=== PATIENT | male | born 1960 | race Caucasian/White ===

== ENCOUNTER 2023-05-22 06:42 | Outpatient (OUT) | payer OTHER, SELFPAY ==
[2023-05-22 07:01] LABS: Basophils Absolute Auto 0.1 10^3/uL (0.0-0.1); Basophils Percent Auto 1.5 % (0.2-2.0); Eosinophils Absolute Auto 0.4 10^3/uL (0.0-0.7); Hematocrit 44.5 % (42.0-54.0); Hemoglobin 14.8 g/dL (14.0-18.0); Immature Granulocytes Abs Auto 0.02 10^3/uL (0.00-0.03); Immature Granulocytes Pct Auto 0.3 % (0.0-0.5); Lymphocytes Absolute Auto 1.7 10^3/uL (1.2-3.8); Lymphocytes Percent Auto 28.6 % (20.5-60.0); Mean Corpuscular HGB Conc 33.3 g/dL (29.9-35.2); Mean Corpuscular Hemoglobin 29.6 pg (25.9-34.0); Mean Platelet Volume 11.3 fL (9.5-13.5); Monocytes Absolute Auto 0.8 10^3/uL (0.3-0.8); Monocytes Percent Auto 14.4 % (1.7-12.0); Neutrophils Absolute Auto 2.8 10^3/uL (1.4-6.5); Neutrophils Percent Auto 48.2 % (43.0-75.0); Platelet Count 291 10^3/uL (150-450); Red Cell Distribution Width 12.4 % (11.0-15.0); White Blood Count 5.8 10^3/uL (4.0-11.0)
[2023-05-22 07:21] LABS: Alanine Aminotransferase 30 U/L (16-63); Albumin Globulin Ratio 1.1; Albumin Level 3.6 g/dL (3.4-5.0); Alkaline Phosphatase 38 U/L (46-116); Anion Gap 12.2; Aspartate Amino Transferase 18 U/L (15-37); BUN Creatinine Ratio 14.9; Bilirubin Total 0.5 mg/dL (0.2-1.0); Calcium 8.5 mg/dL (8.5-10.1); Chloride 106 mmol/L (98-107); Chol HDL Ratio 4.9; Cholesterol 166 mg/dL (<=200); Estimated GFR (African America >60 (>=60); Estimated GFR (Non-African Ame >60 (>=60); Globulin 3.2 g/dL; Glucose 95 mg/dL (74-106); HDL Cholesterol 34 mg/dL (40-60); Potassium 4.2 mmol/L (3.5-5.1); Sodium 142 mmol/L (136-145); Total Protein 6.8 g/dL (6.4-8.2); Triglycerides 55 mg/dL (<=150)
[2023-05-22 08:34] LABS: Prostate Specific Antigen Scrn 2.28 ng/mL (<=4.00)
== END 2023-05-22 06:43 | disposition home or self-care (01) ==
PROVIDERS: PCP Internal Medicine; Visit Provider Internal Medicine
DX: Z00.00 Encounter for general adult medical examination without abnormal findings (principal)
CPT/HCPCS: 36415; 80053; 80061; 85025; G0103

== ENCOUNTER 2023-10-19 20:29 | Outpatient (OUT) | payer OTHER, SELFPAY ==
--- OUTSIDE RECORDS SUMMARY | 2023-10-19 20:31 | XMS_ITS | CCD ---
Author Organization [facility] Care Team Providers Care Slitter Service And Setter Name Role Phone DR KENTON MONTEIRO Admitting Unavailable ISH, DR KATZ Attending Unavailable ISH, DR KATZ Primary Care Unavailable ISH, DR KATZ Consulting Unavailable Kenton Monteiro Unavailable Destinee Rich Unavailable Medications Current Medications Medication Drug Class(es) Dates Sig (Normalized) Sig (Original) amLODIPine 10 mg oral tablet (8 sources) Dihydropyridine Calcium Channel Cecy Start: 07-19-2023 take 10 mg by mouth once daily Amlodipine Active 10 MG PO Daily 90 July 19, 2023 5:59pm Start: 06-25-2023 End: 07-19-2023 take 10 mg by mouth once daily Amlodipine Discontinued 10 MG PO Daily 180 90 June 25, 2023 4:07pm July 19, 2023 5:59pm Start: 05-14-2023 End: 06-25-2023 take 5 mg by mouth once daily Amlodipine Discontinued 5 MG PO Daily 90 May 18, 2023 4:34pm June 25, 2023 4:08pm Start: 05-08-2022 take 1 tablet by karina th every twenty-four hours amLODIPine Besylate 5 MG 1 tablet Orally Once a day for 90 days Apr, Active Aspir-81 81 MG (4 sources) take 1 tablet by mouth once daily Aspir-81 81 MG 1 tablet Orally Once a day Active aspirin 81 mg delayed release oral tablet (1 source) Platelet Aggregation Inhibitor, Nonsteroidal Anti-inflammatory Drug Start: 05-14-19 take 81 mg by mouth once daily Aspirin Active 81 MG PO Daily May 14, 2023 1:00am azithromycin 250 mg oral tablet (2 sources) Macrolide Antimicrobial Start: 12-01-19 Azithromycin 250 MG as directed Orally daily for 5 days Nov, Active meloxicam 15 mg oral tablet (6 sources) Nonsteroidal Anti-inflammatory Drug Start: 05-14-19 End: 05-18-19 take 15 mg by mouth once daily Meloxicam Active 15 MG PO Daily 90 90 May 18, 2023 4:34pm Meloxicam 15 mg TAKE 1 TABLET DAILY Active methylPREDNISolone 4 mg oral tablet (3 sources) Corticosteroid Start: 11-24-2022 methylPREDNISolone 4 MG as directed Orally daily for 6 days Nov, Active sildenafil 100 mg oral tablet (5 sources) Phosphodiesterase 5 Inhibitor Start: 05-14-2023 Sildenafil Active 100 MG PO May 14, 2023 1:00am Sildenafil Citra te 100 mg TAKE 1 TABLET NEEDED FOR ERECTILE DYSFUNCTION Active Completed/Discontinued Medications Medication Drug Class(es) Dates Sig (Normalized) Sig (Original) doxycycline hyclate 100 mg oral capsule (1 source) Tetracycline-clas s Drug Start: 04-15-2016 take 1 capsule by mouth every twelve hours Doxycycline Hyclate 100 mg 1 capsule Orally twice a day for 10 day(s) Apr, Not-Taking Problems Active Problems Problem Classification Problem Date Documented Date Episodic/Chronic Acute bronchitis (1 source) Acute bronchitis due to other specified organisms Episodic Esophageal disorders (2 sources) Gastro-esophageal reflux disease with esophagitis; Translations: [Gastroesophageal reflux disease with esophagitis without hemorrhage] 05-14-2023 Chronic Essential hypertension (10 sources) Essential hypertension; Translations: [Essential (primary) hypertension] Chronic Hyperplasia of prostate (5 sources) Benign prostatic hypertrophy without outflow obstruction; Translations: [Benign prostatic hyperplasia without lower urinary tract symptoms] 05-14-2023 Chronic Other connective tissue disease (1 source) Other symptoms and signs involving the nervous system; Translations: [Other symptoms involving nervous and musculoskeletal systems] 09-03-2023 Episodic Other male genital disorders (4 sources) Impotence of organic origin; Translations: [Erectile dysfunction due to arterial insufficiency] Chronic Other male genital disorders (1 source) Erectile dysfunction co-occurrent and due to arterial insufficiency; Translations: [Erectile dysfunction due to arterial insufficiency] 05-14-2023 Chronic Other nutritional; endocrine; and metabolic disorders (4 sources) Body mass index 25-29 - overweight; Translations: [Overweight] Episodic Other nutritional; endocrine; and metabolic disorders (1 source) Overweight Episodic Other screening for suspected conditions (not mental disorders or infectious disease) (6 sources) Encounter for screening for malignant neoplasm of prostate; Translations: [Patient encounter status] Onset: 05-18-2022 Episodic Other upper respiratory infections (5 sources) Acute pharyngitis; Translations: [Acute pharyngitis due to other specified organisms] Episodic Skin and subcutaneous tissue infections (4 sources) Cellulitis of toe of right foot; Translations: [Cellulitis of right toe] Episodic Spondylosis; intervertebral disc disorders; other back problems (10 sources) Lumbar spondylosis; Translations: [Spondylosis without myelopathy or radiculopathy, lumbar region] Chronic Past or Other Problems Problem Classification Problem Date Documented Da te Episodic/Chronic Esophageal disorders (3 sources) Esophageal disorders; Translations: [Gastroesophageal reflux disease with esophagitis without hemorrhage] Unclassified (4 sources) Acute bilateral low back pain, unspecified whether sciatica present; Translations: [Acute bilateral low back pain, unspecified whether sciatica present] Results Test Name Value Interpretation Reference Range Facility CBC AUTO DIFFon 05-16-2022 BASO # 0.1 103/ul Normal 0.0-0.[address] [facility] Comment on above: Performed By: #### C BC #### [facility] [address] [place] [address] Dr. Kelly Matta Basophils/100 WBC (Bld) 1.4 % Normal 0.2-2.[address] [facility] Comment on above: Performed By: #### C BC #### [facility] [address] [place] [address] Dr. Kelly Matta EO # 0.3 103/ul Normal 0.0-0.[address] [facility] Comment on above: Performed By: #### C BC #### [facility] [address] [address] [address] Kelly Matta Eosinophils/100 WBC (Bld) 6.0 % Normal 0.9-7.[address] [facility] Comment on above: Performed By: #### C BC #### [facility] [address] [place] [address] Dr. Kelly Matta Erythrocyte distribution width (RBC) [Ratio] 12.5 % Normal 11.0-15.[address] [facility] Comment on above: Performed By: #### C BC #### [facility] [address] [place] [address] Dr. Kelly Matta Hematocrit (Bld) [Volume fraction] 43.0 % Normal 42.0-54.[address] [facility] Comment on above: Performed By: #### C BC #### [facility] [address] [place] [address] Dr. Kelly Matta Hemoglobin (Bld) [Mass/Vol] 14.9 g/dL Normal 14.0-18.[address] [facility] Comment on above: Performed By: #### C BC #### [facility] [address] [place] [address] Dr. Kelly Matta IG # 0.03 10e3/ul Normal 0.00-0.[address] [facility] Comment on above: Performed By: #### C BC #### [facility] [address] [place] [address] Dr. Kelly Matta IG % 0.5 % Normal 0.0-0.[address] [facility] Comment on above: Performed By: #### C BC #### [facility] [address] [place] [address] Dr. Kelly Matta LYMPH # 1.6 103/ul Normal 1.2-3.[address] [facility] Comment on above: Performed By: #### C BC #### [facility] [address] [place] [address] Dr. Kelly Matta Lymphocytes/100 WBC (Bld) 29.0 % Normal 20.5-60.[address] [facility] Comment on above: Performed By: #### C BC #### [facility] [address] [place] [address] Dr. Kelly Matta MANUAL DIFF REQ NO Normal [facility] Comment on above: Performed By: #### C BC #### [facility] [address] [place] [address] Dr. Kelly Matta MCH (RBC) [Entitic mass] 30.3 pg Normal 25.9-34.[address] [facility] Comment on above: Performed By: #### C BC #### [facility] [address] [place] [address] Dr. Kelly Matta MCHC (RBC) [Mass/Vol] 34.7 g/dL Normal 29.9-35.[address] [facility] Comment on above: Performed By: #### C BC #### [facility] [address] [place] [address] Dr. Kelly Matta MCV (RBC) [Entitic vol] 87.4 fL Normal 80.0-94.[address] [facility] Comment on above: Performed By: #### C BC #### [facility] [address] [place] [address] Dr. Kelly Matta MONO # 0.7 103/ul Normal 0.3-0.[address] [facility] Comment on above: Performed By: #### C BC #### [facility] [address] [place] [address] Dr. Kelly Matta Monocytes/100 WBC (Bld) 11.9 % Normal 1.7-12.[address] [facility] Comment on above: Performed By: #### C BC #### [facility] [address] [place] [address] Dr. Kelly Matta NEUT # 2.9 103/ul Normal 1.4-6.[address] [facility] Comment on above: Performed By: #### C BC #### [facility] [address] [place] [address] Dr. Kelly Matta Neutrophils/100 WBC (Bld) 51.2 % Normal 43.0-75.[address] [facility] Comment on above: Performed By: #### C BC #### [facility] [address] [place] [address] Dr. Kelly Matta Platelet mean volume (Bld) [Entitic vol] 11.2 fL Normal 9.5-13.[address] [facility] Comment on above: Performed By: #### C BC #### [facility] [address] [place] [address] Dr. Kelly Matta PLT 264 103/ul Normal 150-[address] [facility] Comment on above: Performed By: #### C BC #### [facility] [address] [place] [address] Dr. Kelly Matta RBC 4.92 106/ul Normal 4.70-6.10 [facility] Comment on above: Performed By: #### C BC #### [facility] [address] [address] [address] Kelly Matta WBC 5.7 103/ul Normal 4.0-11.[address] [facility] Comment on above: Performed By: #### C BC #### [facility] [address] [address] [address] Kelly Matta Complete Blood Count and Dif lauren 05-16-2022 Anisocytosis Ql (d) [facility] Other Basophilic stippling LM Ql (d) [facility] Other RBC morphology finding Nom (d) [facility] Other Comprehensive Metabolic Pane nicolas 05-16-2022 Comprehensive Metabolic Panel [facility] Other LIPID PROFILEon 05-16-2022 CHOL-HDL RATIO NORM SEE BELOW Normal [facility] Comment on above: Result Comment: 3.3 - 4.4 LOW RISK 4.4 - 7.1 AVERAGE RISK 7.1 - 11.0 MODERATE RISK >11.0 HIGH RISK Performed By: #### L IPID, CMP #### [facility] [address] [place] [address] Dr. Kelly Matta Cholesterol [Mass/Vol] 183 mg/dL Normal <=[address] [facility] Comment on above: Performed By: #### L IPID, CMP #### [facility] [address] [address] [address] Kelly Matta Cholesterol in HDL [Mass/Vol] 32 mg/dL Critically low 40-[address] [facility] Comment on above: Performed By: #### L IPID, CMP #### [facility] [address] [address] [address] Kelly Matta Cholesterol in LDL [Mass/Vol] 129.6 mg/dL Normal [facility] Comment on above: Performed By: #### L IPID, CMP #### [facility] [address] [address] [address] Kelly Matta Cholesterol.total/C holesterol in HDL [Mass ratio] 5.7 {ratio} Normal [facility] Comment on above: Performed By: #### L IPID, CMP #### [facility] [address] [address] [address] Kelly Matta HDL NORMAL > or = 60 mg/dl - LOW CARDIOVASCULAR RISK <40 mg/dl - HIGH CARDIOVASCULAR RISK Normal [facility] Comment on above: Performed By: #### L IPID, CMP #### [facility] [address] [address] [address] Kelly Matta LDL CALC NORMAL SEE BELOW Normal [facility] Comment on above: Result Comment: <100 mg/dl OPTIMAL 100 - 129 mg/dl NEAR OR ABOVE OPTIMAL 130 - 159 mg/dl BORDERLINE HIGH 160 - 189 mg/dl HIGH >190 mg/dl VERY HIGH Performed By: #### L IPID, CMP #### [facility] [address] [address] [address] Kelly Matta Triglyceride [Mass/Vol] 107 mg/dL Normal <=[address] [facility] Comment on above: Performed By: #### L IPID, CMP #### [facility] [address] [address] [address] Kelly Matta VLDL CALC 21.4 mg/dL Normal [facility] Comment on above: Performed By: #### L IPID, CMP #### [facility] [address] [address] [address] Kelly Matta PROF 14(COMP METB)on 023 Albumin [Mass/Vol] 4.0 g/dL Normal 3.4-5.0 [facility] Comment on above: Performed By: #### L IPID, CMP #### [facility] [address] [address] [address] Kelly Matta Albumin/Globulin [Mass ratio] 1.3 {ratio} Normal [facility] Comment on above: Performed By: #### L IPID, CMP #### [facility] [address] [address] [address] Kelly Matta ALP [Catalytic activity/Vol] 34 U/L Critically low 46-[address] [facility] Comment on above: Performed By: #### L IPID, CMP #### [facility] [address] [address] [address] Kelly Matta ALT [Catalytic activity/Vol] 38 U/L Normal 16-[address] [facility] Comment on above: Performed By: #### L IPID, CMP #### [facility] [address] [address] [address] Kelly Matta Anion gap [Moles/Vol] 12.7 mmol/L Normal [facility] Comment on above: Performed By: #### L IPID, CMP #### [facility] [address] [address] [address] Kelly Matta AST [Catalytic activity/Vol] 23 U/L Normal 15-[address] [facility] Comment on above: Performed By: #### L IPID, CMP #### [facility] [address] [address] [address] Kelly Matta Bilirubin [Mass/Vol] 0.4 mg/dL Normal 0.2-1.[address] [facility] Comment on above: Performed By: #### L IPID, CMP #### [facility] [address] [address] [address] Kelly Matta Calcium [Mass/Vol] 8.9 mg/dL Normal 8.5-10.1 [facility] Comment on above: Performed By: #### L IPID, CMP #### [facility] [address] [address] [address] Kelly Matta Chloride [Moles/Vol] 108 mmol/L Critically high 98-[address] [facility] Comment on above: Performed By: #### L IPID, CMP #### [facility] [address] [address] [address] Kelly Matta CO2 [Moles/Vol] 28.6 mmol/L Normal 21.0-32.0 [facility] Comment on above: Performed By: #### L IPID, CMP #### [facility] [address] [address] [address] Kelly Matta Creatinine [Mass/Vol] 0.99 mg/dL Normal 0.70-1.[address] [facility] Comment on above: Performed By: #### L IPID, CMP #### [facility] [address] [address] [address] Kelly Matta EGFR-AF GEORGIAN >60 Normal >=60 [facility] Comment on above: Performed By: #### L IPID, CMP #### [facility] [address] [address] [address] Kelly Matta EGFR-NON AF GEORGIAN >60 Normal >=[address] [facility] Comment on above: Performed By: #### L IPID, CMP #### [facility] [address] [address] [address] Kelly Matta Globulin (S) [Mass/Vol] 3.1 g/dL Normal [facility] Comment on above: Performed By: #### L IPID, CMP #### [facility] [address] [address] [address] Kelly Matta Glucose [Mass/Vol] 100 mg/dL Normal 74-106 [facility] Comment on above: Performed By: #### L IPID, CMP #### [facility] [address] [address] [address] Kelly Matta Potassium [Moles/Vol] 4.3 mmol/L Normal 3.5-5.[address] [facility] Comment on above: Performed By: #### L IPID, CMP #### [facility] [address] [address] [address] Kelly Matta Protein [Mass/Vol] 7.1 g/dL Normal 6.4-8.2 [facility] Comment on above: Performed By: #### L IPID, CMP #### [facility] [address] [address] [address] Kelly Matta Sodium [Moles/Vol] 145 mmol/L Normal 136-145 [facility] Comment on above: Performed By: #### L IPID, CMP #### [facility] [address] [address] [address] Kelly Matta Urea nitrogen [Mass/Vol] 24.0 mg/dL Critically high 7.0-18.[address] [facility] Comment on above: Performed By: #### L IPID, CMP #### [facility] [address] [address] [address] Kelly Matta Urea nitrogen/Creatinine [Mass ratio] 24.2 mg/mg Normal [facility] Comment on above: Performed By: #### L IPID, CMP #### [facility] [address] [address] [address] Kelly Matta Coding Summary.on 07-26-2018 Coding Summary. CODING DATE: 07/26/2018 FINAL [facility] DSC STATUS: Home (Routine DC) PAYOR: [facility] [place] [facility] DESCRIPTION [address] [facility] Procedures ADMIT DX: REASON FOR VISIT DX: H33.001 Unspecified retinal detachment with retinal break, right eye FINAL DX: PRINCIPAL: H33.001 Unspecified retinal detachment with retinal break, right eye SECONDARY: PYMT PROC APC STAT DESCRIPTION DOCTOR NAME DATE 25382 5481 T Prophylaxis of retinal Sylvia Ely MD 07/20/2018 detachment (eg, retinal break, lattice degeneration) without drainage, 1 or more sessions; photocoagulation (laser or xenon arc) RT Right side (used to identify procedures performed on the right side of the body) NOTE: The code number assigned matches the documented diagnosis and / or procedure in the patient's chart. However, the narrative phrase printed from the coding software may appear abbreviated, or result in slightly different terminology. Coded By: Evelin Hidalgo Date Saved: 07/26/2018 03:18 pm Normal [facility] Vital Signs Date Time Vital Sign Value Performing Clinician Facility 09-03-2023 08:51-0400 Body height 182.88 cm [facility] 09-03-2023 08:51-0400 Body mass index (BMI) [Ratio] 27.8 kg/m2 [facility] 09-03-2023 08:51-0400 Body weight 93.04 kg [facility] 09-03-2023 08:51-0400 Diastolic blood pressure 89 mm[Hg] [facility] 09-03-2023 08:51-0400 Respiratory rate 12 /min [facility] 06-21-2024 08:51-0400 Systolic blood pressure 139 mm[Hg] [facility] 11-24-2022 10:45-0400 Body height 182.88 cm Destinee Layla Other [email or web address] Other 11-24-2022 10:45-0400 Body mass index (BMI) [Ratio] 27.72 kg/m2 Destinee Layla Other [email or web address] Other 11-24-2022 10:45-0400 Body weight 92.72 kg Destinee Layla Other [email or web address] Other 11-24-2022 10:45-0400 Diastolic blood pressure 80 mm[Hg] Destinee Layla Other [email or web address] Other 11-24-2022 10:45-0400 SaO2% (BldA) [Mass fraction] 97 % Destinee Layla Other [email or web address] Other 11-24-2022 10:45-0400 Systolic blood pressure 128 mm[Hg] Destinee Layla Other [email or web address] Other 05-08-2022 14:30-0500 Body height 182.88 cm Kenton Ball Other [email or web address] Other 05-08-2022 14:30-0500 Body mass index (BMI) [Ratio] 28.69 kg/m2 Kenton Ball Other [email or web address] Other 05-08-2022 14:30-0500 Body weight 95.98 kg Kenton Ball Other [email or web address] Other 05-08-2022 14:30-0500 Diastolic blood pressure 80 mm[Hg] Kenton Ball Other [email or web address] Other 05-08-2022 14:30-0500 Respiratory rate 12 /min Kenton Ish Other [email or web address] Other 05-08-2022 14:30-0500 Systolic blood pressure 122 mm[Hg] Kenton Monteiro Other [email or web address] Other Encounters Encounter Date Encounter Type Care Provider Facility Start: 09-03-2023 End: 09-03-2023 ambulatory [facility] Work Phone: Start: 09-03-2023 End: 09-03-2023 Patient encounter procedure [facility] Work Phone: Start: 03-24-2023 End: 03-24-2023 ambulatory Kenton Monteiro Other [email or web address] Other Start: 03-24-2023 Telephone encounter Kenton ALVAREZ [facility] Start: 11-30-2022 End: 11-30-2022 ambulatory Kenton Monteiro Other [email or web address] Other Start: 11-30-2022 Telephone encounter Kenton ALVAREZ [facility] Start: 11-24-2022 End: 11-24-2022 ambulatory Destinee Rich Other [email or web address] Other Start: 11-24-2022 Office outpatient vi sit 15 minutes Destinee Rich [facility] Start: 05-18-2022 Encounter for genera l adult medical examination without abnormal findings DR KENTON MONTEIRO [facility] Start: 05-16-2022 End: 05-17-[address] KENTON MONTEIRO Facility:[facility] Start: 05-16-2022 End: 05-17-2022 Encounter for general adult medical examination without abnormal findings DR KENTON MONTEIRO Facility:[facility] Start: 05-08-2022 End: 05-08-2022 ambulatory Kenton Monteiro Other [email or web address] Other Start: 05-08-2022 Encounter for genera l adult medical examination without abnormal findings Kenton Monteiro [facility] Start: 05-08-2022 Periodic preventive med est patient 40-64yrs Kenton Ish [facility] Procedures Date Procedure Procedure Detail Performing Clinician Start: 05-16-2022 End: 05-16-[address] KENTON MONTEIRO Comment on above: Performed By: #### P [facility] #### [facility] [address] [place] [address] Dr. Kelly Matta Screening for malign ant neoplasm of colon Kenton Monterio Other Immunizations Immunization Date Immunization Notes Care Provider Jesse tran 01-06-2021 influenza virus vaccine, split virus (incl. purified surface antigen) Destinee Rich Other [email or web address] Other 01-06-2021 influenza virus vaccine, unspecified formulation [facility] 04-09-2017 influenza virus vaccine, split virus (incl. purified surface antigen) Destinee Rich Other [facility] Other 04-09-2017 influenza virus vaccine, unspecified formulation [facility] 01-29-2016 tetanus and diphtheria toxoids, adsorbed, preservative free, for adult use (5 Lf of tetanus toxoid and 2 Lf of diphtheria toxoid) Destinee Rich Other [facility] NEGATED: Highlighted row has not occurred!12-06-2019 influenza virus vaccine, split virus (incl. purified surface antigen) Destinee Rich Other [email or web address] Other Payers Date Payer Category Payer Unknown [id number] 1959 Unknown [id number] Social History Date Type Detail Facility Sex Assigned At [email or web address] Other Start: 05-18-2023 Tobacco smoking stat us INIS Never smoked tobacco (finding) [facility] Start: 1960 Sex Assigned At Male F [facility] Evaluation note 11-30-2022 Note Date & Type Note Facility 11-30-2022 Evaluation note Encounter Date Diagnosis Assessment Notes Nov, Acute bronchitis due to other specified organisms (ICD-10 - J20.8) [email or web address] Other Evaluation note 11-24-2022 Note Date & Type Note Facility 11-24-2022 Evaluation note Encounter Date Diagnosis Assessment Notes Nov, Laryngitis (ICD-10 - J04.0) Symptoms of laryngitis is caused by viruses. We discussed treatmen and will trial a steroid. Take medication as prescribed. Complete all doses of medication, even if sx are no longer present. Pt instructed to take medication with food. Informed pt that medication may make pt feel jittery, hungry and give you extra energy. Medication may also increase blood pressure and increase blood sugar. Pt also advised not to take NSAIDs or Meloxicam while using steroids. Salt water gargles may help with discomfort. Take medications as directed. Cool mist humidifier, steaming up bathroom with shower may help with symptom relief. Follow up with if no improvement of symptoms [email or web address] Other Evaluation note 05-08-2022 Note Date & Type Note Facility 05-08-2022 Evaluation note Encounter Date Diagnosis Assessment Notes Apr, Essential hypertension (ICD-10 - I10) This patient is instructed to consume a healthy, low-fat, low-salt diet. They are also encouraged to continue exercise to achieve/maintai n a normal BMI. Apr, Wellness examination (ICD-10 - Z00.00) Healthy diet and exercise. Reviewed age-appropriate preventive testing recommended. Apr, Overweight (BMI 25.0-29.9) (ICD-10 - E66.3) This patient has been instructed on a low-fat, high-fiber diet. They are instructed to reduce calories, portion sizes and snacks. It is recommended that they exercise for 30 minutes, 3-5 times weekly. Apr, Lumbar spondylosis (ICD-10 - M47.816) The patient is instructed to avoid bending, twisting or lifting. They are to use intermittent heat and ice as needed. They may schedule a massage or gentle manipulation. They may safely use Tylenol as needed. Apr, Screening PSA (prostate specific antigen) (ICD-10 - Z12.5) Yearly PSA and SUSAN [email or web address] Other Evaluation note Note Date & Type Note Facility Evaluation note No Information [facility] Other Evaluation note Note Date & Type Note Facility Evaluation note Diagnosis Onset Date Essential hypertension acute Suspected sleep apnea noneac tive [facility] Work Phone: History general Narrative - Reported Note Date & Type Note Facility History general Narrative - Reported Type Medical History Lumbar spondylosis Medical History Gastroesophageal ref lux disease with esophagitis without hemorrhage Medical History Essential hypertension Medical History Benign localized pro static hyperplasia without lower urinary tract symptoms (LUTS) Medical History Erectile dysfunction due to arterial insufficiency Medical History Acute pharyngitis du e to other specified organisms Medical History Paronychia of toenail of right f oot Medical History Acute bilateral low back pain, unspecified whether sciatica present Surgical History hernia repair 02/2013 Surgical History tonsillectomy Hospitalization History see surgical hx [email or web address] Other Summary Purpose Family History Relationship Condition Age at Onset Recorded Date/T josefina Not Specified Hypertension Unknown Advance Directives Advance Directive Response Recorded Date/ Time Advance Directives No May 17 24 3:22pm Chief Complaint and Reason for Visit Chief Complaint wants a sleep study Reason for Visit Essential hypertensi on Suspected sleep apnea Additional Source Comments (unrecognized sect ion and content) No Status Records FoundNo Status Records Found INFORMATION SOURCE (unrecogn ized section and content) DATE CREATED AUTHOR 08/12/2018 [facility] DATE CREATED AUTHOR AUTHOR'S ORGANIZ ATION 05/19/2022 [facility] REASON FOR VISIT (unrecogniz ed section and content) WELLNESSloosing voiceStill s briseidakNo Information Care Teams (unrecognized sec tion and content) Team Status: Active Member Role Status Dates Kenton Monteiro DO Primary Care Provider Active Team Status: Inactive Member Role Status Dates Kenton Monteiro DO Primary Care Provide r, Attending Provider Active Start: September 03, 2023 End: September 03, 2023 Goals (unrecognized section and content) Goals may be documented in a n alternate section FOR RECORDS PERTAINING TO PATIENTS WHO ARE OR HAVE BEEN ENROLLED IN A CHEMICAL DEPENDENCY/SUBSTANCEABUSE PROGRAM, SOME INFORMATION MAY BE OMITTED. This clinical summary was aggregated from multiple sources. Caution should be exercised in using it in the provision of clinical care. This summary normalizes information from multiple sources, and as a consequence, information in this document may materially change the coding, format and clinical context of patient data. In addition, data may be omitted in some cases. CLINICAL DECISIONS SHOULD BE BASED ON THE PRIMARY CLINICAL RECORDS. [employer] [facility]. provides no warranty or guarantee of the accuracy or completeness of information in this document.
== END 2023-10-19 20:30 | disposition home or self-care (01) ==
LOC: SLEEP 20:29
PROVIDERS: PCP Internal Medicine; Visit Provider Internal Medicine
DX: G47.33 Obstructive sleep apnea (adult) (pediatric) (principal)
CPT/HCPCS: 95810

== ENCOUNTER 2023-11-08 19:33 | Outpatient (OUT) | payer OTHER, SELFPAY ==
--- OUTSIDE RECORDS SUMMARY | 2023-11-08 19:52 | XMS_ITS | CCD ---
Author Organization [facility] Informunc health Partnership [facility] Care Team Providers Care Partnership Manager Name Role Phone DR KENTON MONTEIRO Admitting [...] 05-16-2022 BASO # 0.1 103/ul Normal 0[facility]0-0.1 [facility] Comment on above: Performed By: #### C BC #### [facility] [address] [place] [address] Dr. Kelly Matta Basophils/100 WBC (Bld) 1.4 % Normal 0.2-2.0 [facility] Comment on above: Performed By: #### C BC #### [facility] [address] [place] [address] Dr. Kelly Matta EO # 0.3 103/ul Normal 0.0-0.7 [facility] Comment on above: Performed By: #### C BC #### [facility] [address] [address] [address] Kelly Matta Eosinophils/100 WBC (Bld) 6.0 % Normal 0.9-7.0 [facility] Comment on above: Performed By: #### C BC #### [facility] [address] [place] [address] Dr. Kelly Matta Erythrocyte distribution width (RBC) [Ratio] 12.5 % Normal 11.0-15.0 [facility] Comment on above: Performed By: #### C BC #### [facility] [address] [place] [address] Dr. Kelly Matta Hematocrit (Bld) [Volume fraction] 43.0 % Normal 42.0-54.0 [facility] Comment on above: Performed By: #### C BC #### [facility] [address] [place] [address] Dr. Kelly Matta Hemoglobin (Bld) [Mass/Vol] 14.9 g/dL Normal 14.0-18.0 [facility] Comment on above: Performed By: #### C BC #### [facility] [address] [place] [address] Dr. Kelly Matta IG # 0.03 10e3/ul Normal 0.00-0.03 [facility] Comment on above: Performed By: #### C BC #### [facility] [address] [place] [address] Dr. Kelly Matta IG % 0.5 % Normal 0.0-0.5 [facility] Comment on above: Performed By: #### C BC #### [facility] [address] [place] [address] Dr. Kelly Matta LYMPH # 1.6 103/ul Normal 1.2-3.8 [facility] Comment on above: Performed By: #### C BC #### [facility] [address] [place] [address] Dr. Kelly Matta Lymphocytes/100 WBC (Bld) 29.0 % Normal 20.5-60.0 [facility] Comment on above: Performed By: #### C BC #### [facility] [address] [place] [address] Dr. Kelly Matta MANUAL DIFF REQ NO Normal [facility] Comment on above: Performed By: #### C BC #### [facility] [address] [place] [address] Dr. Klely Matta MCH (RBC) [Entitic mass] 30.3 pg Normal 25.9-34.0 [facility] Comment on above: Performed By: #### C BC #### [facility] [address] [place] [address] Dr. Kelly Matta MCHC (RBC) [Mass/Vol] 34.7 g/dL Normal 29.9-35.2 [facility] Comment on above: Performed By: #### C BC #### [facility] [address] [place] [address] Dr. Kelly Matta MCV (RBC) [Entitic vol] 87.4 fL Normal 80.0-94.0 [facility] Comment on above: Performed By: #### C BC #### [facility] [address] [place] [address] Dr. Kelly Matta MONO # 0.7 103/ul Normal 0.3-0.8 [facility] Comment on above: Performed By: #### C BC #### [facility] [address] [place] [address] Dr. Kelly Matta Monocytes/100 WBC (Bld) 11.9 % Normal 1.7-12.0 [facility] Comment on above: Performed By: #### C BC #### [facility] [address] [place] [address] Dr. Kelly Matta NEUT # 2.9 103/ul Normal 1.4-6.5 [facility] Comment on above: Performed By: #### C BC #### [facility] [address] [place] [address] Dr. Kelly Matta Neutrophils/100 WBC (Bld) 51.2 % Normal 43.0-75.0 [facility] Comment on above: Performed By: #### C BC #### [facility] [address] [place] [address] Dr. Kelly Matta Platelet mean volume (Bld) [Entitic vol] 11.2 fL Normal 9.5-13.5 [facility] Comment on above: Performed By: #### C BC #### [facility] [address] [place] [address] Dr. Kelly Matta PLT 264 103/ul Normal 150-450 [facility] Comment on above: Performed By: #### C BC #### [facility] [address] [place] [address] Dr. Kelly Matta RBC 4.92 106/ul Normal 4.70-6.10 [facility] Comment on above: Performed By: #### C BC #### [facility] [address] [address] [address] Kelly Matta WBC 5.7 103/ul Normal 4.0-11.0 [facility] Comment on above: Performed By: #### C BC #### [facility] [address] [address] [address] Kelly Matta Complete Blood Count and Dif lauren 05-16-2022 Anisocytosis Ql (d) [facility] Other Basophilic stippling LM Ql (d) [facility] Other RBC morphology finding Nom (d) [facility] Other Comprehensive Metabolic Pane nicolas 05-16-2022 Comprehensive Metabolic Panel [facility] Other LIPID PROFILEon 05-16-2022 CHOL-HDL RATIO NORM SEE BELOW Normal [facility] Comment on above: Result Comment: 3.3 - 4.4 LOW RISK 4.4 - 7.1 AVERAGE RISK 7.1 - 11.0 MODERATE RISK >11.0 HIGH RISK Performed By: #### L IPID, CMP #### [facility] [address] [place] [address] Dr. Kelly Matta Cholesterol [Mass/Vol] 183 mg/dL Normal <=200 [facility] Comment on above: Performed By: #### L IPID, CMP #### [facility] [address] [address] [address] Kelly Matta Cholesterol in HDL [Mass/Vol] 32 mg/dL Critically low 40-60 [facility] Comment on above: Performed By: #### L IPID, CMP #### [facility] [address] [address] [address] Kelly Matta Cholesterol in LDL [Mass/Vol] 129.6 mg/dL Normal [facility] Comment on above: Performed By: #### L IPID, CMP #### [facility] [address] [address] [address] Kelly Matta Cholesterol.total/C holesterol in HDL [Mass ratio] 5.7 {ratio} [facility] Comment on above: Performed By: #### L IPID, CMP #### [facility] [address] [address] [address] Kelly Matta HDL NORMAL > or = 60 mg/dl - LOW CARDIOVASCULAR RISK <40 mg/dl - HIGH CARDIOVASCULAR RISK Normal [facility] Comment on above: Performed By: #### L IPID, CMP #### [facility] [address] [address] [address] Kelly Matta LDL CALC NORMAL SEE BELOW Normal [facility] Comment on above: Result Comment: <100 mg/dl OPTIMAL 100 - 129 mg/dl NEAR OR ABOVE OPTIMAL 130 - 159 mg/dl BORDERLINE HIGH 160 - 189 mg/dl HIGH >190 mg/dl VERY HIGH Performed By: #### L IPID, CMP #### [facility] [address] [address] [address] Kelly Matta Triglyceride [Mass/Vol] 107 mg/dL Normal <=150 [facility] Comment on above: Performed By: #### L IPID, CMP #### [facility] [address] [address] [address] Kelly Matta VLDL CALC 21.4 mg/dL Normal [facility] Comment on above: Performed By: #### L IPID, CMP #### [facility] [address] [address] [address] Kelly Matta PROF 14(COMP METB)on 023 Albumin [Mass/Vol] 4.0 g/dL Normal 3.4-5.0 [facility] Comment on above: Performed By: #### L IPID, CMP #### [facility] [address] [address] [address] Kelly Matta Albumin/Globulin [Mass ratio] 1.3 {ratio} Normal [facility] Comment on above: Performed By: #### L IPID, CMP #### [facility] [address] [address] [address] Kelly Matta ALP [Catalytic activity/Vol] 34 U/L Critically low 46-116 [facility] Comment on above: Performed By: #### L IPID, CMP #### [facility] [address] [address] [address] Kelly Matta ALT [Catalytic activity/Vol] 38 U/L Normal 16-63 [facility] Comment on above: Performed By: #### L IPID, CMP #### [facility] [address] [address] [address] Kelly Matta Anion gap [Moles/Vol] 12.7 mmol/L Normal [facility] Comment on above: Performed By: #### L IPID, CMP #### [facility] [address] [address] [address] Kelly Matta AST [Catalytic activity/Vol] 23 U/L Normal 15-37 [facility] Comment on above: Performed By: #### L IPID, CMP #### [facility] [address] [address] [address] Kelly Matta Bilirubin [Mass/Vol] 0.4 mg/dL Normal 0.2-1.0 [facility] Comment on above: Performed By: #### L IPID, CMP #### [facility] [address] [address] [address] Kelly Matta Calcium [Mass/Vol] 8.9 mg/dL Normal 8.5-10.1 [facility] Comment on above: Performed By: #### L IPID, CMP #### [facility] [address] [address] [address] Kelly Matta Chloride [Moles/Vol] 108 mmol/L Critically high 98-107 [facility] Comment on above: Performed By: #### L IPID, CMP #### [facility] [address] [address] [address] Kelly Matta CO2 [Moles/Vol] 28.6 mmol/L Normal 21.0-32.0 [facility] Comment on above: Performed By: #### L IPID, CMP #### [facility] [address] [address] [address] Kelly Matta Creatinine [Mass/Vol] 0.99 mg/dL Normal 0.70-1.30 [facility] Comment on above: Performed By: #### L IPID, CMP #### [facility] [address] [address] [address] Kelly Matta EGFR-AF CHINESE >60 Normal >=60 [facility] Comment on above: Performed By: #### L IPID, CMP #### [facility] [address] [address] [address] Kelly Matta EGFR-NON AF CHINESE >60 Normal >=60 [facility] Comment on above: Performed By: #### L IPID, CMP #### [facility] [address] [address] [address] Kelly Matta Globulin (S) [Mass/Vol] 3.1 g/dL [facility] Comment on above: Performed By: #### L IPID, CMP #### [facility] [address] [address] [address] Kelly Matta Glucose [Mass/Vol] 100 mg/dL Normal 74-106 [facility] Comment on above: Performed By: #### L IPID, CMP #### [facility] [address] [address] [address] Kelly Matta Potassium [Moles/Vol] 4.3 mmol/L Normal 3.5-5.1 [facility] Comment on above: Performed By: #### L IPID, CMP #### [facility] [address] [address] [address] Kelly Matta Protein [Mass/Vol] 7.1 g/dL Normal 6.4-8.2 [facility] Comment on above: Performed By: #### L IPID, CMP #### [facility] [address] [address] [address] Kelly Matta Sodium [Moles/Vol] 145 mmol/L Normal 136-145 [facility] Comment on above: Performed By: #### L IPID, CMP #### [facility] [address] [address] [address] Kelly Matta Urea nitrogen [Mass/Vol] 24.0 mg/dL Critically high 7.0-18.0 [facility] Comment on above: Performed By: #### L IPID, CMP #### [facility] [address] [address] [address] Kelly Matta Urea nitrogen/Creatinine [Mass ratio] 24.2 mg/mg [facility] Comment on above: Performed By: #### L IPID, CMP #### [facility] [address] [address] [address] Kelly Matta Coding Summary.on 07-26-2018 Coding Summary. CODING DATE: 07/26/2018 FINAL [facility] DSC STATUS: Home (Routine DC) PAYOR: [facility] DESCRIPTION [address] [facility] Procedures ADMIT DX: REASON FOR VISIT DX: H33.001 Unspecified retinal detachment with retinal break, right eye FINAL DX: PRINCIPAL: H33.001 Unspecified retinal detachment with retinal break, right eye SECONDARY: PYMT PROC APC STAT DESCRIPTION DOCTOR NAME DATE 63094 5481 T Prophylaxis of retinal Sylvia Ely [...] [place] Date Saved: 07/26/2018 03:18 pm Normal [facility] Vital Signs Date Time Vital Sign Value Performing Clinician Facility 09-03-2023 08:51-0400 Body height 182.88 cm [facility] 09-03-2023 08:51-0400 Body mass index (BMI) [Ratio] 27.8 kg/m2 [facility] 09-03-2023 08:51-0400 Body weight 93.04 kg [facility] 09-03-2023 08:51-0400 Diastolic blood pressure 89 mm[Hg] [facility] 09-03-2023 08:51-0400 Respiratory rate 12 /min [facility] 06-21-2024 08:51-0400 Systolic blood pressure 139 mm[Hg] [facility] 11-24-2022 10:45-0400 Body height 182.88 cm Destinee Layla Other [facility] Other 11-24-2022 10:45-0400 Body mass index (BMI) [Ratio] 27.72 kg/m2 Destinee Layla Other [facility] Other 11-24-2022 10:45-0400 Body weight 92.72 kg Destinee Layla Other [facility] Other 11-24-2022 10:45-0400 Diastolic blood pressure 80 mm[Hg] Destinee Layla Other [facility] Other 11-24-2022 10:45-0400 SaO2% (BldA) [Mass fraction] 97 % Destinee Layla Other [facility] Other 11-24-2022 10:45-0400 Systolic blood pressure 128 mm[Hg] Destinee Layla Other [facility] Other 05-08-2022 14:30-0500 Body height 182.88 cm Kenton Ball Other [facility] Other 05-08-2022 14:30-0500 Body mass index (BMI) [Ratio] 28.69 kg/m2 Kenton Ball Other [facility] Other 05-08-2022 14:30-0500 Body weight 95.98 kg Kenton Ball Other [facility] Other 05-08-2022 14:30-0500 Diastolic blood pressure 80 mm[Hg] Kenton Ball Other [facility] Other 05-08-2022 14:30-0500 Respiratory rate 12 /min Kenton Ish Other [facility] Other 05-08-2022 14:30-0500 Systolic blood pressure 122 mm[Hg] Kenton Monteiro Other [facility] Other Encounters Encounter Date Encounter Type Care Provider Facility Start: 09-03-2023 End: 09-03-2023 ambulatory [facility] Work Phone: Start: 09-03-2023 End: 09-03-2023 Patient encounter procedure [facility] Work Phone: Start: 03-24-2023 End: 03-24-2023 ambulatory Kenton Monteiro Other [facility] Other Start: 03-24-2023 Telephone encounter Kenton ALVAREZ [facility] Start: 11-30-2022 End: 11-30-2022 ambulatory Kenton Monteiro Other [facility] Other Start: 11-30-2022 Telephone encounter Kenton ALVAREZ [facility] Start: 11-24-2022 End: 11-24-2022 ambulatory Destinee Rich Other [facility] Other Start: 11-24-2022 Office outpatient vi sit 15 minutes Destinee Rich [facility] Start: 05-18-2022 Encounter for genera l adult medical examination without abnormal findings DR KENTON MONTEIRO [facility] Start: 05-16-2022 End: 05-17-[address] KENTON MONTEIRO Facility:[facility] Start: 05-16-2022 End: 05-17-2022 Encounter for general adult medical examination without abnormal findings DR KENTON MONTEIRO Facility:[facility] Start: 05-08-2022 End: 05-08-2022 ambulatory Kenton Monteiro Other [facility] Other Start: 05-08-2022 Encounter for genera l adult medical examination without abnormal findings Kenton Monteiro [facility] Start: 05-08-2022 Periodic preventive med est patient 40-64yrs Kenton Ish [facility] Procedures Date Procedure Procedure Detail Performing Clinician Start: 05-16-2022 End: 05-16-[address] KENTON MONTEIRO Comment on above: Performed By: #### [facility] #### [facility] [address] [place] [address] Dr. Kelly Matta Screening for malign ant neoplasm of colon Kenton Monteiro Other Immunizations Immunization Date Immunization Notes Care Provider Jesse tran 01-06-2021 influenza virus vaccine, split virus (incl. purified surface antigen) Destinee Rich Other [facility] Other 01-06-2021 influenza virus vaccine, unspecified formulation [facility] 04-09-2017 influenza virus vaccine, split virus (incl. purified surface antigen) Destinee Rich Other [employer] Other 04-09-2017 influenza virus vaccine, unspecified formulation [facility] 01-29-2016 tetanus and diphtheria toxoids, adsorbed, preservative free, for adult use (5 Lf of tetanus toxoid and 2 Lf of diphtheria toxoid) Destinee Rich Other [facility] NEGATED: Highlighted row has not occurred!12-06-2019 influenza virus vaccine, split virus (incl. purified surface antigen) Destinee Rich Other [facility] Other Payers Date Payer Category Payer Unknown [id number] 1959 Unknown [id number] Social History Date Type Detail Facility Sex Assigned At [facility] Other Start: 05-18-2023 Tobacco smoking stat us NMIS Never smoked tobacco (finding) [facility] Start: 1960 Sex Assigned At Male [facility] Evaluation note 11-30-2022 Note Date & Type Note Facility 11-30-2022 Evaluation note Encounter Date Diagnosis Assessment Notes Nov, Acute bronchitis due to other specified organisms (ICD-10 - J20.8) [facility] Other Evaluation note 11-24-2022 Note Date & [...] up with if no improvement of symptoms [facility] Other Evaluation note 05-08-2022 Note Date & [...] (ICD-10 - Z12.5) Yearly PSA and SUSAN [facility] Other Evaluation note Note Date & Type Note Facility Evaluation note No Information [facility] Other Evaluation note Note Date & Type Note Facility Evaluation note Diagnosis Onset Date Essential hypertension acute Suspected sleep apnea noneac tive [facility] Work Phone: History general Narrative - [...] History tonsillectomy Hospitalization History see surgical hx [facility] [employer] Other Summary Purpose Family History Relationship Condition [...] section and content) DATE CREATED AUTHOR 08/12/2018 [facility] DATE CREATED AUTHOR AUTHOR'S ORGANIZ ATION [...] BE BASED ON THE PRIMARY CLINICAL RECORDS. [facility]. provides no warranty or guarantee of the accuracy or completeness of information in this document.
== END 2023-11-08 19:34 | disposition home or self-care (01) ==
LOC: SLEEP 19:49
PROVIDERS: PCP Internal Medicine; Visit Provider Internal Medicine
DX: G47.33 Obstructive sleep apnea (adult) (pediatric) (principal)
CPT/HCPCS: 95811

== ENCOUNTER 2024-05-20 06:21 | Outpatient (OUT) | payer OTHER, SELFPAY ==
--- OUTSIDE RECORDS SUMMARY | 2024-05-18 09:31 | XMS_ITS | CCD ---
Author Organization [facility] Care Team Providers Care Manager Regional Name Role Phone DR KENTON MONTEIRO Admitting Unavailable CAYETANO, DR KATZ Attending Unavailable CAYETANO, DR KATZ Primary Care Unavailable CAYETANO, DR KATZ Consulting Kenton Lerner Unavailable Destinee Rich Unavailable KAVON MCGHEE Attending Unavailable Kenton Monteiro MD Primary Care Provider Medications Current Medications Medication Drug Class(es) Dates Sig (Normalized) Sig (Original) amLODIPine 10 mg oral tablet (14 sources) Dihydropyridine Calcium Channel Cecy Start: 07-19-2023 take 10 mg by mouth once daily Amlodipine Active 10 MG PO Daily 90 90 July 19, 2023 5:59pm Start: 06-25-2023 End: 07-19-2023 take 10 mg by mouth once daily Amlodipine Discontinued 10 MG PO Daily 180 90 June 25, 2023 4:07pm July 19, 2023 5:59pm Start: 05-14-2023 End: 06-25-2023 take 5 mg by mouth once daily Amlodipine Discontinued 5 MG PO Daily 90 90 May 18, 2023 4:34pm June 25, [...] aspirin 81 mg delayed release oral tablet (4 sources) Platelet Aggregation Inhibitor, Nonsteroidal Anti-inflammatory Drug Start: 05-14-19 24 aspirin 81 MG EC tablet Daily 05/14/2023 Active azithromycin 250 mg oral tablet (2 sources) Macrolide Antimicrobial Start: 12-01-19 23 Azithromycin 250 MG as directed Orally daily for 5 days 18 Sep, 2023 Active meloxicam 15 mg oral tablet (10 sources) Nonsteroidal Anti-inflammatory Drug Start: 05-14-19 End: 05-18-19 meloxicam (Mobic) 15 MG tablet Daily 05/18/2023 Active Meloxicam 15 mg TAKE 1 TABLET DAILY Active methylPREDNISolone 4 mg oral tablet (3 sources) Corticosteroid Start: 11-24-2022 methylPREDNISolone 4 MG as directed Orally daily for 6 days Nov, Active sildenafil 100 mg oral tablet (6 sources) Phosphodiesterase 5 Inhibitor Start: 05-14-2023 Sildenafil [...] to other specified organisms Episodic Esophageal disorders (4 sources) Gastro-esophageal reflux disease with esophagitis; Translations: [Gastroesophageal reflux disease with esophagitis without hemorrhage] 05-14-2023 Chronic Essential hypertension (12 sources) Essential hypertension; Translations: [Essential (primary) hypertension] Chronic Hyperplasia of prostate (6 sources) Benign prostatic hypertrophy without outflow obstruction; Translations: [Benign prostatic hyperplasia without lower urinary tract symptoms] 05-14-2023 Chronic Other connective tissue disease (1 source) Other symptoms and signs involving the nervous system; Translations: [Other symptoms involving nervous and musculoskeletal systems] 09-03-2023 Episodic Other lower respiratory disease (2 sources) Snoring; Translations: [Snoring] 12-23-2023 Episodic Other male genital disorders (4 sources) Impotence of organic origin; Translations: [Erectile dysfunction due to arterial insufficiency] Chronic Other male genital disorders (2 sources) Erectile dysfunction co-occurrent and due to arterial [...] pharyngitis due to other specified organisms] Episodic Residual codes; unclassified (3 sources) Obstructive sleep apnea syndrome; Translations: [Obstructive sleep apnea (adult) (pediatric)] 10-28-2023 Chronic Residual codes; unclassified (1 source) Obstructive sleep apnea (adult) (pediatric); Translations: [Obstructive sleep apnea (adult)(pediatric)] 12-22-2023 Chronic Residual codes; unclassified (2 sources) Periodic limb movement disorder; Translations: [Periodic limb movement disorder] 12-23-2023 Chronic Residual codes; unclassified (2 sources) Hypersomnia; Translations: [Hypersomnia, unspecified] 12-23-2023 Chronic Skin and subcutaneous tissue infections (4 sources) Cellulitis of toe of right foot; Translations: [Cellulitis of right toe] Episodic Spondylosis; intervertebral disc disorders; other back problems (12 sources) Lumbar spondylosis; Translations: [Spondylosis without myelopathy [...] 05-16-2022 BASO # 0.1 103/ul Normal 0.0-0.1 [facility] Comment on above: Performed By: #### C BC #### [facility] [address] [address] [address] Kelly Matta Basophils/100 WBC (Bld) 1.4 % Normal 0.2-2.0 [facility] Comment on above: Performed By: #### C BC #### [facility] [id number] Kelly Matta EO # 0.3 103/ul Normal 0.0-0.7 [facility] Comment on above: Performed By: #### C BC #### [facility] [address] [place] [address] Dr. Kelly Matta Eosinophils/100 WBC (Bld) 6.0 % Normal 0.9-7.0 [facility] Comment on above: Performed By: #### C BC #### [facility] [address] [place] [address] Dr. Kelly Matta Erythrocyte distribution width (RBC) [Ratio] 12.5 % Normal 11.0-15.0 [facility] Comment on above: Performed By: #### C BC #### [facility] [address] [place] [address] Dr. Kelly Matta Hematocrit (Bld) [Volume fraction] 43.0 % Normal 42.0-54.0 [facility] Comment on above: Performed By: #### C BC #### [facility] [address] [place] [address] Dr. Kelly Matta Hemoglobin (Bld) [Mass/Vol] 14.9 g/dL Normal 14.0-18.0 [facility] Comment on above: Performed By: #### C BC #### [facility] [address] [place] [address] Dr. Kelly Matta IG # 0.03 10e3/ul Normal 0.00-0.03 [facility] Comment on above: Performed By: #### C BC #### [facility] [address] [place] [address] Dr. Kelly Matta IG % 0.5 % Normal 0.0-0.5 [facility] Comment on above: Performed By: #### C BC #### [facility] [address] [place] [address] Dr. Kelly Matta LYMPH # 1.6 103/ul Normal 1.2-3.8 [facility] Comment on above: Performed By: #### C BC #### [facility] [address] [place] [address] Dr. Kelly Matta Lymphocytes/100 WBC (Bld) 29.0 % Normal 20.5-60.0 [facility] Comment on above: Performed By: #### C BC #### [facility] [address] [place] [address] Dr. Kelly Matta MANUAL DIFF REQ NO Normal [facility] Comment on above: Performed By: #### C BC #### [facility] [address] [place] [address] Dr. Kelly Matta MCH (RBC) [Entitic mass] 30.3 pg Normal 25.9-34.0 [facility] Comment on above: Performed By: #### C BC #### [facility] [address] [place] [address] Dr. Kelly Matta MCHC (RBC) [Mass/Vol] 34.7 g/dL Normal 29.9-35.2 [facility] Comment on above: Performed By: #### C BC #### [facility] [address] [place] [address] Dr. Kelly Matta MCV (RBC) [Entitic vol] 87.4 fL Normal 80.0-94.0 [facility] Comment on above: Performed By: #### C BC #### [facility] [address] [place] [address] Dr. Kelly Matta MONO # 0.7 103/ul Normal 0.3-0.8 [facility] Comment on above: Performed By: #### C BC #### [facility] [address] [place] [address] Dr. Kelly Matta Monocytes/100 WBC (Bld) 11.9 % Normal 1.7-12.0 [facility] Comment on above: Performed By: #### C BC #### [facility] [address] [place] [address] Dr. Kelly Matta NEUT # 2.9 103/ul Normal 1.4-6.5 [facility] Comment on above: Performed By: #### C BC #### [facility] [address] [place] [address] Dr. Kelly Matta Neutrophils/100 WBC (Bld) 51.2 % Normal 43.0-75.0 [facility] Comment on above: Performed By: #### C BC #### [facility] [address] [address] [address] Kelly Matta Platelet mean volume (Bld) [Entitic vol] 11.2 fL Normal 9.5-13.5 [facility] Comment on above: Performed By: #### C BC #### [facility] [address] [address] [address] Kelly Matta PLT 264 103/ul Normal 150-450 [facility] Comment on above: Performed By: #### C BC #### [facility] [address] [address] [address] Kelly Matta RBC 4.92 106/ul Normal 4.70-6.10 [facility] Comment on above: Performed By: #### C BC #### [facility] [address] [place] [address] Dr. Kelly Matta WBC 5.7 103/ul Normal 4.0-11.0 [facility] Comment on above: Performed By: #### C BC #### [facility] [address] [address] [address] Kelly Matta Complete Blood Count and Dif lauren 05-16-2022 Anisocytosis Ql (Bld) [facility] Other Basophilic stippling LM Ql (Bld) [facility] Other RBC morphology finding Nom (Bld) [facility] Other Comprehensive Metabolic Pane nicolas 05-16-2022 Comprehensive Metabolic Panel [facility] Other LIPID PROFILEon 05-16-2022 CHOL-HDL RATIO NORM SEE BELOW Normal [facility] Comment on above: Result Comment: 3.3 - 4.4 LOW RISK 4.4 - 7.1 AVERAGE RISK 7.1 - 11.0 MODERATE RISK >11.0 HIGH RISK Performed By: #### L IPID, CMP #### [facility] [address] [place] [address] Dr. Kelly Matta Cholesterol [Mass/Vol] 183 mg/dL Normal <=200 [facility] Comment on above: Performed By: #### L IPID, CMP #### [facility] [address] [address] [address] Kelly Matta Cholesterol in HDL [Mass/Vol] 32 mg/dL Critically low 40-60 [facility] Comment on above: Performed By: #### L IPID, CMP #### [facility] [address] [address] [address] Kelly Matta Cholesterol in LDL [Mass/Vol] 129.6 mg/dL Normal [facility] Comment on above: Performed By: #### L IPID, CMP #### [facility] [address] [address] [address] Kelly Matta Cholesterol.total/C holesterol in HDL [Mass ratio] 5.7 {ratio} Normal [facility] Comment on above: Performed By: #### L IPID, CMP #### [facility] [address] [place] [address] Dr. Kelly Matta HDL NORMAL > or = 60 mg/dl - LOW CARDIOVASCULAR RISK <40 mg/dl - HIGH CARDIOVASCULAR RISK Normal [facility] Comment on above: Performed By: #### L IPID, CMP #### [facility] [address] [place] [address] Dr. Kelly Matta LDL CALC NORMAL SEE BELOW Normal [facility] Comment on above: Result Comment: <100 mg/dl OPTIMAL 100 - 129 mg/dl NEAR OR ABOVE OPTIMAL 130 - 159 mg/dl BORDERLINE HIGH 160 - 189 mg/dl HIGH >190 mg/dl VERY HIGH Performed By: #### L IPID, CMP #### [facility] [address] [address] [address] Kelly Matta Triglyceride [Mass/Vol] 107 mg/dL Normal <=150 [facility] Comment on above: Performed By: #### L IPID, CMP #### [facility] [address] [address] [address] Kelly Matta VLDL CALC 21.4 mg/dL Normal [facility] Comment on above: Performed By: #### L IPID, CMP #### [facility] [address] [address] [address] Kelly Matta PROF 14(COMP METB)on 023 Albumin [Mass/Vol] 4.0 g/dL Normal 3.4-5.0 [facility] Comment on above: Performed By: #### L IPID, CMP #### [facility] [address] [address] [address] Kelly Matta Albumin/Globulin [Mass ratio] 1.3 {ratio} Normal [facility] Comment on above: Performed By: #### L IPID, CMP #### [facility] [address] [address] [address] Kelly Matta ALP [Catalytic activity/Vol] 34 U/L Critically low 46-116 [facility] Comment on above: Performed By: #### L IPID, CMP #### [facility] [address] [address] [address] Kelly Matta ALT [Catalytic activity/Vol] 38 U/L Normal 16-63 [facility] Comment on above: Performed By: #### L IPID, CMP #### [facility] [address] [address] [address] Kelly Matta Anion gap [Moles/Vol] 12.7 mmol/L Normal [facility] Comment on above: Performed By: #### L IPID, CMP #### [facility] [address] [address] [address] Kelly Matta AST [Catalytic activity/Vol] 23 U/L Normal 15-37 [facility] Comment on above: Performed By: #### L IPID, CMP #### [facility] [address] [address] [address] Kelly Matta Bilirubin [Mass/Vol] 0.4 mg/dL Normal 0.2-1.0 [facility] Comment on above: Performed By: #### L IPID, CMP #### [facility] [address] [address] [address] Kelly Matta Calcium [Mass/Vol] 8.9 mg/dL Normal 8.5-10.1 [facility] Comment on above: Performed By: #### L IPID, CMP #### [facility] [address] [address] [address] Kelly Matta Chloride [Moles/Vol] 108 mmol/L Critically high 98-107 [facility] Comment on above: Performed By: #### L IPID, CMP #### [facility] [address] [address] [address] Kelly Matta CO2 [Moles/Vol] 28.6 mmol/L Normal 21.0-32.0 [facility] Comment on above: Performed By: #### L IPID, CMP #### [facility] [address] [address] [address] Kelly Matta Creatinine [Mass/Vol] 0.99 mg/dL Normal 0.70-1.30 [facility] Comment on above: Performed By: #### L IPID, CMP #### [facility] [address] [place] [address] Dr. Kelly Matta EGFR-AF MONTENEGRIN >60 Normal >=60 [facility] Comment on above: Performed By: #### L IPID, CMP #### [facility] [address] [address] [address] Kelly Matta EGFR-NON AF MONTENEGRIN >60 Normal >=60 [facility] Comment on above: Performed By: #### L IPID, CMP #### [facility] [address] [address] [address] Kelly Matta Globulin (S) [Mass/Vol] 3.1 g/dL Normal [facility] Comment on above: Performed By: #### L IPID, CMP #### [facility] [address] [address] [address] Kelly Matta Glucose [Mass/Vol] 100 mg/dL Normal 74-106 [facility] Comment on above: Performed By: #### L IPID, CMP #### [facility] [address] [address] [address] Kelly Matta Potassium [Moles/Vol] 4.3 mmol/L Normal 3.5-5.1 [facility] Comment on above: Performed By: #### L IPID, CMP #### [facility] [address] [address] [address] Kelly Matta Protein [Mass/Vol] 7.1 g/dL Normal 6.4-8.2 [facility] Comment on above: Performed By: #### L IPID, CMP #### [facility] [address] [address] [address] Kelly Matta Sodium [Moles/Vol] 145 mmol/L Normal 136-145 [facility] Comment on above: Performed By: #### L IPID, CMP #### [facility] [address] [address] [address] Kelly Matta Urea nitrogen [Mass/Vol] 24.0 mg/dL Critically high 7.0-18.0 [facility] Comment on above: Performed By: #### L IPID, CMP #### [facility] [address] [place] [address] Dr. Kelly Matta Urea nitrogen/Creatinine [Mass ratio] 24.2 mg/mg Normal [facility] Comment on above: Performed By: #### L IPID, CMP #### [facility] [address] [place] [address] Dr. Kelly Matta Coding Summary.on 07-26-2018 Coding Summary. CODING DATE: 07/26/2018 FINAL [facility] STATUS: Home (Routine DC) PAYOR: [facility] [place] [facility] DESCRIPTION [address] [facility] Procedures ADMIT DX: REASON FOR VISIT DX: H33.001 Unspecified retinal detachment with retinal break, right eye FINAL DX: PRINCIPAL: H33.001 Unspecified retinal detachment with retinal break, right eye SECONDARY: PYMT PROC APC STAT DESCRIPTION DOCTOR NAME DATE 27215 5481 T Prophylaxis of retinal Sylvia Ely [...] Evelin Hidalgo Date Saved: 07/26/2018 03:18 pm [facility] Vital Signs Date Time Vital Sign Value Performing Clinician Facility 12-23-2023 12:18-0400 Body height 182.9 cm Kavon Luana DO Work Phone: [facility] 12-23-2023 12:18-0400 Body mass index (BMI) [Ratio] 27.69 kg/m2 Kavon Luana DO Work Phone: [facility] 12-23-2023 12:18-0400 Body weight 92.63 kg Kavon Luana DO Work Phone: [facility] 12-23-2023 12:18-0400 Diastolic blood pressure 98 mm[Hg] Kavon Luana DO Work Phone: [facility] 12-23-2023 12:18-0400 Heart rate 68 /min Kavon Luana DO Work Phone: [facility] 12-23-2023 12:18-0400 SaO2% (BldA) [Mass fraction] 98 % Kavon Luana DO Work Phone: [facility] 12-23-2023 12:18-0400 Systolic blood pressure 162 mm[Hg] Kavon Luana DO Work Phone: [facility] 12-22-2023 09:23-0400 Body mass index (BMI) [Ratio] 27.9 kg/m2 [facility] 12-22-2023 09:23-0400 Diastolic blood pressure 85 mm[Hg] [facility] 12-22-2023 09:23-0400 Systolic blood pressure 139 mm[Hg] [facility] 12-22-2023 09:05-0400 Body height 182.88 cm [facility] 12-22-2023 09:05-0400 Body weight 93.55 kg [facility] 12-22-2023 09:05-0400 Heart rate 58 /min [facility] 12-22-2023 09:05-0400 Respiratory rate 12 /min [facility] 09-03-2023 08:51-0400 Body height 182.88 cm [facility] 09-03-2023 08:51-0400 Body mass index (BMI) [Ratio] 27.8 kg/m2 [facility] 09-03-2023 08:51-0400 Body weight 93.04 kg [facility] 09-03-2023 08:51-0400 Diastolic blood pressure 89 mm[Hg] [facility] 09-03-2023 08:51-0400 Respiratory rate 12 /min [facility] 09-03-2023 08:51-0400 Systolic blood pressure 139 mm[Hg] [facility] 11-24-2022 10:45-0400 Body height 182.88 cm Destinee Rich Other [facility] Other 11-24-2022 10:45-0400 Body mass index (BMI) [Ratio] 27.72 kg/m2 Destinee Rich Other [facility] Other 11-24-2022 10:45-0400 Body weight 92.72 kg Destinee Rich Other [facility] Other 11-24-2022 10:45-0400 Diastolic blood pressure 80 mm[Hg] Destinee Rich Other [facility] Other 11-24-2022 10:45-0400 SaO2% (BldA) [Mass fraction] 97 % Destinee Rich Other [facility] Other 11-24-2022 10:45-0400 Systolic blood pressure 128 mm[Hg] Destinee Rich Other [facility] Other 05-08-2022 14:30-0500 Body height 182.88 cm Kenton Ball Other [facility] Other 05-08-2022 14:30-0500 Body mass index (BMI) [Ratio] 28.69 kg/m2 [facility] Other [facility] Other 05-08-2022 14:30-0500 Body weight 95.98 kg [facility] Other [facility] Other 05-08-2022 14:30-0500 Diastolic blood pressure 80 mm[Hg] [facility] Other [facility] Other 05-08-2022 14:30-0500 Respiratory rate 12 /min [facility] Other [facility] Other 05-08-2022 14:30-0500 Systolic blood pressure 122 mm[Hg] [facility] Other [facility] Other Encounters Encounter Date Encounter Type Care Provider Facility Start: 12-23-2023 End: 12-23-2023 Bamboo flowsheet Kavon Luana DO Work Phone: [facility] Start: 12-23-2023 End: 12-23-2023 Bamboo flowsheet Kavon Luana DO Work Phone: [facility] Start: 12-23-2023 End: 12-23-2023 Office consultation new/estab patient 60 min Kavon Luana DO Work Phone: [facility] Comment on above: VIJAY (obstructive sle ep apnea); PLMD (periodic limb movement disorder); Hypersomnia; Snoring Start: 12-23-2023 End: 12-23-2023 ambulatory KAVON MCGHEE Not Available Start: 12-22-2023 End: 12-22-2023 ambulatory [facility] Work Phone: Start: 12-22-2023 End: 12-22-2023 Patient encounter procedure [facility] Work Phone: Start: 09-03-2023 End: 09-03-2023 ambulatory [facility] Work Phone: Start: 09-03-2023 End: 09-03-2023 Patient encounter procedure [facility] Work Phone: Start: 03-24-2023 End: 03-24-2023 ambulatory Kenton Monteiro Other [facility] Other Start: 03-24-2023 Telephone encounter Kenton ALVAREZ [facility] Start: 11-30-2022 End: 11-30-2022 ambulatory Kenton Monteiro Other [facility] Other Start: 11-30-2022 Telephone encounter Kenton ALVAREZ Counts Include [facility] Start: 11-24-2022 End: 11-24-2022 ambulatory Destinee Rich Other [facility] Other Start: 11-24-2022 Office outpatient vi sit 15 minutes Destinee Rich [facility] Start: 05-18-2022 Encounter for genera l adult medical examination without abnormal findings DR KENTON MONTEIRO [facility] Start: 05-16-2022 End: 05-17-[address] KENTON MONTEIRO Facility:[facility] Start: 05-16-2022 End: 05-17-2022 Encounter for general adult medical examination without abnormal findings DR KENTON MONTEIRO Facility:[facility] Start: 05-08-2022 End: 05-08-2022 ambulatory Kenton Monteiro Other [facility] Other Start: 05-08-2022 Encounter for genera l adult medical examination without abnormal findings Kenton Monteiro [facility] Start: 05-08-2022 Periodic preventive med est patient 40-64yrs Kenton Monteior [facility] Procedures Date Procedure Procedure Detail Performing Clinician Start: 05-16-2022 End: 05-16-[address] KENTON MONTEIRO Comment on above: Performed By: #### P [facility] #### [facility] [address] [place] [address] Dr. Kelly Matta Screening for malign ant neoplasm of colon Kenton Monteiro Other Plan of Treatment Date Care Activity Detail Author Start: 12-23-2023 End: 12-23-2023 Patient encounter procedure 12/23/2023 12:30 PM EDT [facility] [address] [facility] [address] [place] [address] Tha Mcgheele, [address] [place] [address] Arrived [facility] Comment on above: Arrived Start: 1960 Screening for malign ant neoplasm of colon [facility] Immunizations Immunization Date Immunization Notes Care Provider Fa cility 12-22-2023 influenza, seasonal, injectable, preservative free [facility] 01-06-2021 influenza virus vaccine, split virus (incl. purified surface antigen) Destinee Rich Other [facility] Other 01-06-2021 influenza virus vaccine, unspecified formulation [facility] 04-09-2017 influenza virus vaccine, split virus (incl. purified surface antigen) Destinee Rich Other [facility] Other 04-09-2017 influenza virus vaccine, unspecified formulation [facility] 01-29-2016 tetanus and diphtheria toxoids, adsorbed, preservative free, for adult use (5 Lf of tetanus toxoid and 2 Lf of diphtheria toxoid) Destinee Rich Other [facility] NEGATED: Highlighted row has not occurred!12-06-2019 influenza virus vaccine, split virus (incl. purified surface antigen) Destinee Rich Other [facility] Other Payers Date Payer Category Payer Unknown [employer] [id number] 2022-Present [address] [place] [address] [id number] 1960 Unknown [id number] 1960 Unknown [id number] 1959 Unknown [id number] Social History Date Type Detail Facility Sex Assigned At [facility] Other Start: 05-18-2023 Tobacco smoking status ARIS Never smoked tobacco (finding) [facility] Start: 1960 Sex Assigned At Male [facility] Tobacco smoking status [facility] Tobacco smoking consumption unknown [facility] Start: 1960 Sex assigned at Not on file [facility] History of Present illness Narrative 12-23-2023 Kavon Mcghee, DO - 12/23/2023 12:30 PM EDT Note Date & Type Note Facility 12-23-2023 History of Presen t illness Narrative Images from the original note were not included. Chief Complaint Patient presents with Sleep Apnea Subjective Steve Darci Zamora, 63 y.o., male being seen in Sleep consultation at the request of Dr. Monteiro HPI He was tired in the after noon and dozing off if he was not active. The patient states that he got his machine on 11/24/23. He states that he is tolerating the machine well and wearing it nightly. He denies any issues with the machine. He states that he is sleeping 7 hours a night. He goes to bed at 10pm and gets up at 5am. He wakes up once a night about 3 and looks at the clock. Before his machine it was 3-4 times a night. He is able to go back to sleep. He is feeling a benefit less arousals and more awake during the day. 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 Sleep ND Patient Symptoms Snores: Yes Wakes gasping for breath: Yes Dozes off if inactive: Yes Dozes off with activity: No Wakes a lot through the night: Yes before his machine now only once a night Witnessed episodes of apnea: Yes Bedtime: 10pm Is it hard or easy to fall asleep: Easy Morning wake time: 5am Do you feel rested: No not before the mask but feels rested now Takes naps: No Feels better after napping: Sleepwalk: No Sleeptalk: No Vivid Dreams: Yes Acts out dreams: No Sleep related hallucinations: No Sleep paralysis: No Cataplexy: No Restless Leg: no figitidy Kicking/Jerking at night: Yes before the mask TV on while sleeping: No Smoke before bed: No Caffeine within 3 hours before bed: No CV exercise: Yes he climbs everyday for work He work on [employer] on [employer]. No past medical history on file. No past surgical history on file. No family history on file. Social History Tobacco Use Smoking status: Not on file Smokeless tobacco: Not on file Substance Use Topics Alcohol use: Not on file Allergies: Patient has no known allergies. General: No fever or chills HEENT: No nasal congestion or runny nose Pulmonary: No shortness of breath or cough Cardiovascular: No chest pain or palpitations GI: No nausea or vomiting : No dysuria or hematuria Musculoskeletal: No new aches or pains or muscle weakness Infectious: no recurrent fevers or infections Dermatologic: No rashes or skin lesions Neurologic: No new headaches or dizziness Vitals: 12/23/23 1218 BP: (!) 162/98 Pulse: 68 SpO2: 98% Body mass index is 27.69 kg/m . weight: 204 lb 3.2 oz Neurologic exam: General: Normal body habitus, cooperative, pleasant Mental status: Awake, alert to person, place and time. Recent and remote memory are intact. Attention and concentration are normal. Fund of knowledge is appropriate for level of education. HEENT: NC/AT Mallampati of 3+ and narrow oropharyngeal opening Cranial nerves: CN II: Visual guajardo full to confrontation. No loss of vision CN III, IV, : pupils equal round and reactive to light. Extraocular movements intact. No ptosis present. CN V: Facial sensation is normal. CN VII: Full and symmetric facial movement. CN VIII: Hearing is normal CN IX and X: Palate elevates symmetrically. CN XI: Shoulder shrug is normal bilaterally. CN XII: Tongue is midline without atrophy or fasciculation. Speech: Clear and fluent no aphasia or dysarthria Pronator drift: Negative bilateral upper extremity Coordination: Intact, no signs of dysmetria Good finger to nose and rapid alternating movements Sensory: Sensation is intact to light, temperature and vibratory touch throughout four extremities. Motor: LUE 5/5 RUE 5/5 LLE 5/5 RLE 5/5 Tone: Physiologic, no tremor, bradykinesia or rigidity DTR: Bilateral Biceps 2/4 Bilateral BR 2/4 Bilateral Patellar 2/4 No spasticity Gait: Normal to casual gait Romberg's Negative Review and summary of old records: Assessment/Plan Diagnoses and all orders for this visit: VIJAY (obstructive sleep apnea) PLMD (periodic limb movement disorder) Hypersomnia Snoring 63-year-old male with a moderate obstructive sleep apnea with an apnea-hypopnea index of 19 and an oxygen desaturation down to 85 percent. This is leading to daytime hypersomnia and snoring. He was struggling to stay awake during the day and sometimes would have to take a nap at lunchtime. He now has his BiPAP machine and is set at 10/6 cm of water this is working very well for him. He is getting great benefit feels much more rested and is not waking up due the night. He can stay awake at work and does not struggle. Of concern though is that he has significant amount of limb movements with 649 limb movements on his titration study and 607 limb movements on his PSG. However his told him that he is no longer moving much at night and is sleeping much more soundly. We would like to hold on medicine if he does not truly need it. He will have his watch him while he is sleeping when she gets up and ask her and see how much she is moving. If he is not moving much we will leave things as it is. If he is moving he needs to call us and let us know so we can do a trial of medicines such as doxepin or Klonopin. He was counseled that the movements were causing arousal so it needs to be treated if he is having them. Patient is compliant with his machine he just got it on November 23 and since that time he has worn it 100 percent of the time greater than 4 hours with an average nightly usage of 7 hours and 19 minutes with a residual AHI of 5.6. His report says 90 percent of the time but he did not have it for the 3 days of this recording. We could up his pressures slightly to improve his AHI however he is comfortable and getting benefit and he wants to leave it where it. Plan PSG was reviewed with him Titration study was reviewed with him Patient is compliant as above Patient is to monitor for the PLMD and should watch him. He was counseled no news is good news so if he is not moving not to call us however if he is moving a lot he needs to call us so we can get this treated. He voiced understanding and importance of this. The patient was counseled on proper sleep hygiene and adequate hours of sleep. The patient was counseled on the risks of stroke, PR, and sudden with VIJAY, along with the need for compliance with the CPAP/BiPAP treatment. He is compliant with the machine therefore this should be no restrictions on his CDL We will plan on seeing him back in 1 year at the sleep clinic The diagnosis was all discussed with the patient. All questions were answered and they agreed with the treatment plan. Patient will call if there are any new issues or questions. Pt has been fully educated on their diagnosis, treatment options, follow up plan, and return instructions Return to clinic: 1 year documented in this encounter [facility] Evaluation note 11-30-2022 Note Date & Type Note Facility 11-30-2022 Evaluation note Encounter Date Diagnosis Assessment Notes Nov, Acute bronchitis due to other specified organisms (ICD-10 - J20.8) [facility] Other Evaluation note 11-24-2022 Note Date & [...] up with if no improvement of symptoms [facility] Other Evaluation note 05-08-2022 Note Date & [...] (ICD-10 - Z12.5) Yearly PSA and SUSAN [facility] Other Evaluation note Note Date & Type Note Facility Evaluation note No Information [facility] Other Evaluation note Note Date & Type Note Facility Evaluation note Diagnosis Onset Date Essential hypertension acute Suspected sleep apnea noneac tive [facility] Work Phone: Evaluation note Note Date & Type Note Facility Evaluation note Diagnosis Onset Date Essential hypertension acute Gastroesophageal reflux dise ase with esophagitis without hemorrhage acute VIJAY (obstructive sleep apnea) acute [facility] Work Phone: Evaluation note Note Date & Type Note Facility Evaluation note Diagnosis VIJAY (obstructive sleep apnea) Obstructive sleep apnea (adult) (pediatric) PLMD (periodic limb movement disorder) Periodic limb movement disorder Hypersomnia Hypersomnia, unspecified Snoring Other dyspnea and respiratory abnormality documented in this encounter [facility] History general Narrative - Reported Note Date [...] History tonsillectomy Hospitalization History see surgical hx [facility] Other Summary Purpose Family History Relationship Condition Age at Onset Recorded Date/T joseifna Not Specified Hypertension Unknown Relationship Condition Age at Onset Recorded Date/T josefina mother Hypertension Unknown Advance Directives Advance Directive Response Recorded Date/ Time Advance Directives No May 17 3:22pm Chief Complaint and Reason for Visit Chief Complaint wants a sleep study Reason for Visit Essential hypertensi on Suspected sleep apnea Chief Complaint 4 month follow up Reason for Visit Essential hypertensi on Gastroesophageal reflux disease with esophagitis without hemorrhage VIJAY (obstructive sleep apnea) Additional Source Comments (unrecognized sect ion and content) No Status Records FoundNo Status Records FoundNo Status Records Found INFORMATION SOURCE (unrecogn ized section and content) DATE CREATED AUTHOR 08/12/2018 [facility] DATE CREATED AUTHOR AUTHOR'S ORGANIZ ATION 05/19/2022 [facility] DATE CREATED AUTHOR AUTHOR'S ORGANIZ ATION 12/25/2023 [facility] REASON FOR VISIT (unrecogniz ed section and content) Reason Comments Sleep Apnea Specialty Diagnoses / Procedures Referred By Eve elizondo Referred To Contact Neurology Diagnoses Obstructive sleep apnea (adult) (pediatric) Procedures AL OFFICE/OUTPATIENT [facility] 30 MINUTES Kavon Mcghee DO [address] [place] [address] Referral ID Status Reason Start Date Expiration Date V isits Requested Visits Authorized [id number] Closed Consult and Treat 12/21/2023 06/18/2024 1 1 Care Teams (unrecognized sec tion and content) Team Status: Active Member Role Status Dates Kenton Monteiro DO Primary Care Provider Active Team Status: Inactive Member Role Status Dates Kenton Monteiro DO Primary Care Provide r, Attending Provider Active Start: September 03, 2023 End: September 03, 2023 Team Status: Inactive Member Role Status Dates Kenton Monteiro , DO Primary Care Provide r, Attending Provider Active Start: December 22, 2023 End: December 22, 2023 Manager Regional Relationship Specialty Start Date End Date Kenton Monteiro MD [address] [place] [id number] PCP - General Internal Medicine 11/04/23 Manager Regional Relationship Specialty Start Date End Date Kenton Monteiro MD [address] [place] [id number] PCP - General Internal Medicine 11/04/23 Goals (unrecognized section and content) Goals may [...] BE BASED ON THE PRIMARY CLINICAL RECORDS. [employer] provides no warranty or guarantee of the accuracy or completeness of information in this document.
--- OUTSIDE RECORDS SUMMARY | 2024-05-20 06:23 | XMS_ITS | CCD ---
Author Organization [facility] Care Team Providers Care Athletic Coordinator Name Role Phone DR KENTON MONTEIRO Admitting Unavailable CAYETANO, DR KATZ Attending Unavailable CAYETANO, DR KATZ Primary Care Unavailable CAYETANO, DR KATZ Consulting Kenton Lerner Unavailable Destinee Rich Unavailable [phone] KAVON MCGHEE Attending Unavailable Kenton Monteiro MD [...] 05-16-2022 BASO # 0.1 103/ul Normal 0.0-0.1 [facility] Comment on above: Performed By: #### C BC #### [facility] [address] [address] [address] Kelly Matta Basophils/100 WBC (Bld) 1.4 % Normal 0.2-2.0 [facility] Comment on above: Performed By: #### C BC #### [facility] [id number] Kelly Matta EO # 0.3 103/ul Normal 0.0-0.7 [facility] Comment on above: Performed By: #### C BC #### [facility] [address] [place] [address] Dr. Kelly Matta Eosinophils/100 WBC (Bld) 6.0 % Normal 0.9-7.0 [facility] Comment on above: Performed By: #### C BC #### [facility] [address] [place] [address] Dr. Kelly Matta Erythrocyte distribution width (RBC) [Ratio] 12.5 % Normal 11.0-15.0 [facility] Comment on above: Performed By: #### C BC #### [facility] [address] [place] [address] Dr. Kelly Matta Hematocrit (Bld) [Volume fraction] 43.0 % Normal 42.0-54.0 [facility] Comment on above: Performed By: #### C BC #### [facility] [address] [place] [address] Dr. Kelly Matta Hemoglobin (Bld) [Mass/Vol] 14.9 g/dL Normal 14.0-18.0 [facility] Comment on above: Performed By: #### C BC #### [facility] [address] [place] [address] Dr. Kelly Matta IG # 0.03 10e3/ul Normal 0.00-0.03 [facility] Comment on above: Performed By: #### C BC #### [facility] [address] [place] [address] Dr. Kelly Matta IG % 0.5 % Normal 0.0-0.5 [facility] Comment on above: Performed By: #### C BC #### [facility] [address] [place] [address] Dr. Kelly Matta LYMPH # 1.6 103/ul Normal 1.2-3.8 [facility] Comment on above: Performed By: #### C BC #### [facility] [address] [place] [address] Dr. Kelly Matta Lymphocytes/100 WBC (Bld) 29.0 % Normal 20.5-60.0 [facility] Comment on above: Performed By: #### C BC #### [facility] [address] [place] [address] Dr. Kelly Matta MANUAL DIFF REQ NO Normal [facility] Comment on above: Performed By: #### C BC #### [facility] [address] [place] [address] Dr. Kelly Matta MCH (RBC) [Entitic mass] 30.3 pg Normal 25.9-34.0 [facility] Comment on above: Performed By: #### C BC #### [facility] [address] [place] [address] Dr. Kelly Matta MCHC (RBC) [Mass/Vol] 34.7 g/dL Normal 29.9-35.2 [facility] Comment on above: Performed By: #### C BC #### [facility] [address] [place] [address] Dr. Kelly Matta MCV (RBC) [Entitic vol] 87.4 fL Normal 80.0-94.0 [facility] Comment on above: Performed By: #### C BC #### [facility] [address] [place] [address] Dr. Kelly Matta MONO # 0.7 103/ul Normal 0.3-0.8 [facility] Comment on above: Performed By: #### C BC #### [facility] [address] [place] [address] Dr. Kelly Matta Monocytes/100 WBC (Bld) 11.9 % Normal 1.7-12.0 [facility] Comment on above: Performed By: #### C BC #### [facility] [address] [place] [address] Dr. Kelly Matta NEUT # 2.9 103/ul Normal 1.4-6.5 [facility] Comment on above: Performed By: #### C BC #### [facility] [address] [place] [address] Dr. Kelly Matta Neutrophils/100 WBC (Bld) 51.2 % Normal 43.0-75.0 [facility] Comment on above: Performed By: #### C BC #### [facility] [address] [address] [address] Kelly Matta Platelet mean volume (Bld) [Entitic vol] 11.2 fL Normal 9.5-13.5 [facility] Comment on above: Performed By: #### C BC #### [facility] [address] [address] [address] Kelly Matta PLT 264 103/ul Normal 150-450 [facility] Comment on above: Performed By: #### C BC #### [facility] [address] [address] [address] Kelly Matta RBC 4.92 106/ul Normal 4.70-6.10 [facility] Comment on above: Performed By: #### C BC #### [facility] [address] [place] [address] Dr. Kelly Matta WBC 5.7 103/ul Normal 4.0-11.0 [facility] Comment on above: Performed By: #### C BC #### [facility] [address] [address] [address] Kelly Matta Complete Blood Count and Dif lauren 05-16-2022 Anisocytosis Ql (Bld) [facility] Other Basophilic stippling LM Ql (Bld) [facility] Other RBC morphology finding Nom (Bld) [facility] [employer] Other Comprehensive Metabolic Pane nicolas 05-16-2022 Comprehensive Metabolic Panel [facility] [employer] Other LIPID PROFILEon 05-16-2022 CHOL-HDL RATIO NORM SEE BELOW Normal [facility] Comment on above: Result Comment: 3.3 - 4.4 LOW RISK 4.4 - 7.1 AVERAGE RISK 7.1 - 11.0 MODERATE RISK >11.0 HIGH RISK Performed By: #### L IPID, CMP #### [facility] [address] [place] [address] Dr. Kelly Matta Cholesterol [Mass/Vol] 183 mg/dL Normal <=200 [facility] Comment on above: Performed By: #### L IPID, CMP #### [facility] [address] [address] [address] Kelly Matta Cholesterol in HDL [Mass/Vol] 32 mg/dL Critically low 40-60 [facility] Comment on above: Performed By: #### L IPID, CMP #### [facility] [address] [address] [address] Kelly Matta Cholesterol in LDL [Mass/Vol] 129.6 mg/dL Normal [facility] Comment on above: Performed By: #### L IPID, CMP #### [facility] [address] [address] [address] Kelly Matta Cholesterol.total/C holesterol in HDL [Mass ratio] 5.7 {ratio} Normal [facility] Comment on above: Performed By: #### L IPID, CMP #### [facility] [address] [place] [address] Dr. Kelly Matta HDL NORMAL > or = 60 mg/dl - LOW CARDIOVASCULAR RISK <40 mg/dl - HIGH CARDIOVASCULAR RISK Normal [facility] Comment on above: Performed By: #### L IPID, CMP #### [facility] [address] [place] [address] Dr. Kelly Matta LDL CALC NORMAL SEE BELOW Normal [facility] Comment on above: Result Comment: <100 mg/dl OPTIMAL 100 - 129 mg/dl NEAR OR ABOVE OPTIMAL 130 - 159 mg/dl BORDERLINE HIGH 160 - 189 mg/dl HIGH >190 mg/dl VERY HIGH Performed By: #### L IPID, CMP #### [facility] [address] [address] [address] Kelly Matta Triglyceride [Mass/Vol] 107 mg/dL Normal <=150 [facility] Comment on above: Performed By: #### L IPID, CMP #### [facility] [address] [address] [address] Kelly Matta VLDL CALC 21.4 mg/dL Normal [facility] Comment on above: Performed By: #### L IPID, CMP #### [facility] [address] [address] [address] Kelly Matta PROF 14(COMP METB)on 023 Albumin [Mass/Vol] 4.0 g/dL Normal 3.4-5.0 [facility] Comment on above: Performed By: #### L IPID, CMP #### [facility] [address] [address] [address] Kelly Matta Albumin/Globulin [Mass ratio] 1.3 {ratio} Normal [facility] Comment on above: Performed By: #### L IPID, CMP #### [facility] [address] [address] [address] Kelly Matta ALP [Catalytic activity/Vol] 34 U/L Critically low 46-116 [facility] Comment on above: Performed By: #### L IPID, CMP #### [facility] [address] [address] [address] Kelly Matta ALT [Catalytic activity/Vol] 38 U/L Normal 16-63 [facility] Comment on above: Performed By: #### L IPID, CMP #### [facility] [address] [address] [address] Kelly Matta Anion gap [Moles/Vol] 12.7 mmol/L Normal [facility] Comment on above: Performed By: #### L IPID, CMP #### [facility] [address] [address] [address] Kelly Matta AST [Catalytic activity/Vol] 23 U/L Normal 15-37 [facility] Comment on above: Performed By: #### L IPID, CMP #### [facility] [address] [address] [address] Kelly Matta Bilirubin [Mass/Vol] 0.4 mg/dL Normal 0.2-1.0 [facility] Comment on above: Performed By: #### L IPID, CMP #### [facility] [address] [address] [address] Kelly Matta Calcium [Mass/Vol] 8.9 mg/dL Normal 8.5-10.1 [facility] Comment on above: Performed By: #### L IPID, CMP #### [facility] [address] [address] [address] Kelly Matta Chloride [Moles/Vol] 108 mmol/L Critically high 98-107 [facility] Comment on above: Performed By: #### L IPID, CMP #### [facility] [address] [address] [address] Kelly Matta CO2 [Moles/Vol] 28.6 mmol/L Normal 21.0-32.0 [facility] Comment on above: Performed By: #### L IPID, CMP #### [facility] [address] [address] [address] Kelly Matta Creatinine [Mass/Vol] 0.99 mg/dL Normal 0.70-1.30 [facility] Comment on above: Performed By: #### L IPID, CMP #### [facility] [address] [place] [address] Dr. Kelly Matta EGFR-AF GREENLANDIC >60 Normal >=60 [facility] Comment on above: Performed By: #### L IPID, CMP #### [facility] [address] [address] [address] Kelly Matta EGFR-NON AF GREENLANDIC >60 Normal >=60 [facility] Comment on above: Performed By: #### L IPID, CMP #### [facility] [address] [address] [address] Kelly Matta Globulin (S) [Mass/Vol] 3.1 g/dL Normal [facility] Comment on above: Performed By: #### L IPID, CMP #### [facility] [address] [address] [address] Kelly Matta Glucose [Mass/Vol] 100 mg/dL Normal 74-106 [facility] Comment on above: Performed By: #### L IPID, CMP #### [facility] [address] [address] [address] Kelly Matta Potassium [Moles/Vol] 4.3 mmol/L Normal 3.5-5.1 [facility] Comment on above: Performed By: #### L IPID, CMP #### [facility] [address] [address] [address] Kelly Matta Protein [Mass/Vol] 7.1 g/dL Normal 6.4-8.2 [facility] Comment on above: Performed By: #### L IPID, CMP #### [facility] [address] [address] [address] Kelly Matta Sodium [Moles/Vol] 145 mmol/L Normal 136-145 [facility] Comment on above: Performed By: #### L IPID, CMP #### [facility] [address] [address] [address] Kelly Matta Urea nitrogen [Mass/Vol] 24.0 mg/dL Critically high 7.0-18.0 [facility] Comment on above: Performed By: #### L IPID, CMP #### [facility] [address] [place] [address] Dr. Kelly Matta Urea nitrogen/Creatinine [Mass ratio] 24.2 mg/mg Normal [facility] Comment on above: Performed By: #### L IPID, CMP #### [facility] [address] [place] [address] Dr. Kelly Matta Coding Summary.on 07-26-2018 Coding Summary. CODING DATE: 07/26/2018 FINAL [facility] STATUS: Home (Routine DC) PAYOR: [facility] DESCRIPTION [address] [facility] Procedures ADMIT DX: REASON FOR VISIT DX: H33.001 Unspecified retinal detachment with retinal break, right eye FINAL DX: PRINCIPAL: H33.001 Unspecified retinal detachment with retinal break, right eye SECONDARY: PYMT PROC APC STAT DESCRIPTION DOCTOR NAME DATE 81832 5481 T Prophylaxis of retinal Sylvia Ely [...] Evelin Hidalgo Date Saved: 07/26/2018 03:18 pm [facility] Vital Signs Date Time Vital Sign Value Performing Clinician Facility 12-23-2023 12:18-0400 Body height 182.9 cm Kavon Luana DO Work Phone: [facility] 12-23-2023 12:18-0400 Body mass index (BMI) [Ratio] 27.69 kg/m2 Kavon Luana DO Work Phone: [facility] 12-23-2023 12:18-0400 Body weight 92.63 kg Kavon Luana DO Work Phone: [facility] 12-23-2023 12:18-0400 Diastolic blood pressure 98 mm[Hg] Kavon Luana DO Work Phone: [facility] 12-23-2023 12:18-0400 Heart rate 68 /min Kavon Luana DO Work Phone: [facility] 12-23-2023 12:18-0400 SaO2% (BldA) [Mass fraction] 98 % Kavon Luana DO Work Phone: [facility] 12-23-2023 12:18-0400 Systolic blood pressure 162 mm[Hg] Kavon Luana DO Work Phone: [facility] 12-22-2023 09:23-0400 Body mass index (BMI) [Ratio] 27.9 kg/m2 [facility] 12-22-2023 09:23-0400 Diastolic blood pressure 85 mm[Hg] [facility] 12-22-2023 09:23-0400 Systolic blood pressure 139 mm[Hg] [facility] 12-22-2023 09:05-0400 Body height 182.88 cm [facility] 12-22-2023 09:05-0400 Body weight 93.55 kg [facility] 12-22-2023 09:05-0400 Heart rate 58 /min [facility] 12-22-2023 09:05-0400 Respiratory rate 12 /min [facility] 09-03-2023 08:51-0400 Body height 182.88 cm [facility] 09-03-2023 08:51-0400 Body mass index (BMI) [Ratio] 27.8 kg/m2 [facility] 09-03-2023 08:51-0400 Body weight 93.04 kg [facility] 09-03-2023 08:51-0400 Diastolic blood pressure 89 mm[Hg] [facility] 09-03-2023 08:51-0400 Respiratory rate 12 /min [facility] 09-03-2023 08:51-0400 Systolic blood pressure 139 mm[Hg] [facility] 11-24-2022 10:45-0400 Body height 182.88 cm Destinee Rich Other [facility] [employer] Other 11-24-2022 10:45-0400 Body mass index (BMI) [Ratio] 27.72 kg/m2 Destinee Rich Other [facility] Other 11-24-2022 10:45-0400 Body weight 92.72 kg Destinee Rich Other [facility] Other 11-24-2022 10:45-0400 Diastolic blood pressure 80 mm[Hg] Destinee Rich Other [facility] Other 11-24-2022 10:45-0400 SaO2% (BldA) [Mass fraction] 97 % Destinee Rich Other [facility] Other 11-24-2022 10:45-0400 Systolic blood pressure 128 mm[Hg] Destinee Rich Other [facility] Other 05-08-2022 14:30-0500 Body height 182.88 cm Kenton Ball Other [facility] Other 05-08-2022 14:30-0500 Body mass index (BMI) [Ratio] 28.69 kg/m2 [employer] Other [facility] Other 05-08-2022 14:30-0500 Body weight 95.98 kg [employer] Other [facility] Other 05-08-2022 14:30-0500 Diastolic blood pressure 80 mm[Hg] [employer] Other [facility] Other 05-08-2022 14:30-0500 Respiratory rate 12 /min [employer] Other [facility] Other 05-08-2022 14:30-0500 Systolic blood pressure 122 mm[Hg] [employer] Other [facility] Other Encounters Encounter Date Encounter Type Care Provider Facility Start: 12-23-2023 End: 12-23-2023 Bamboo flowsheet Kavon Luana DO Work Phone: [facility] Start: 12-23-2023 End: 12-23-2023 Bamboo flowsheet Kavon Luana DO Work Phone: [facility] Start: 12-23-2023 End: 12-23-2023 Office consultation new/estab patient 60 min Kavon Luana DO Work Phone: [facility] Comment on above: VIJAY (obstructive sle ep apnea); PLMD (periodic limb movement disorder); Hypersomnia; Snoring Start: 12-23-2023 End: 12-23-2023 ambulatory KAVON MCGHEE Not Available Start: 12-22-2023 End: 12-22-2023 ambulatory [facility] Work Phone: Start: 12-22-2023 End: 12-22-2023 Patient encounter procedure [facility] Work Phone: Start: 09-03-2023 End: 09-03-2023 ambulatory [facility] Work Phone: Start: 09-03-2023 End: 09-03-2023 Patient encounter procedure [facility] Work Phone: Start: 03-24-2023 End: 03-24-2023 ambulatory Kenton Monteiro Other [facility] Other Start: 03-24-2023 Telephone encounter Kenton ALVAREZ [facility] Start: 11-30-2022 End: 11-30-2022 ambulatory Kenton Monteiro Other [facility] Other Start: 11-30-2022 Telephone encounter Kenton ALVAREZ [facility] Start: 11-24-2022 End: 11-24-2022 ambulatory Destinee Rich Other [facility] Other Start: 11-24-2022 Office outpatient vi sit 15 minutes Destinee Rich [facility] Start: 05-18-2022 Encounter for genera l adult medical examination without abnormal findings DR KENTON MONTEIRO [facility] Start: 05-16-2022 End: 05-17-[address] KENTON MONTEIRO Facility:[facility] Start: 05-16-2022 End: 05-17-2022 Encounter for general adult medical examination without abnormal findings DR KENTON MONTEIRO Facility:[facility] Start: 05-08-2022 End: 05-08-2022 ambulatory Kenton Monteiro Other [facility] Other Start: 05-08-2022 Encounter for genera l adult medical examination without abnormal findings Kenton Monteiro [facility] Start: 05-08-2022 Periodic preventive med est patient 40-64yrs Kenton Monteiro [facility] Procedures Date Procedure Procedure Detail Performing Clinician Start: 05-16-2022 End: 05-16-[address] KENTON MONTEIRO Comment on above: Performed By: #### P [facility] #### [facility] [address] [place] [address] Dr. Kelly Matta Screening for malign ant neoplasm of colon Kenton Monteiro Other Plan of Treatment Date Care Activity Detail Author Start: 12-23-2023 End: 12-23-2023 Patient encounter procedure 12/23/2023 12:30 PM EDT [facility] [address] [facility] [address] [place] [address] Tha Mcgheele, [address] [place] [address] Arrived [facility] Comment on above: Arrived Start: 1960 Screening for malign ant neoplasm of colon [facility] Immunizations Immunization Date Immunization Notes Care Provider Fa cility 12-22-2023 influenza, seasonal, injectable, preservative free [facility] 01-06-2021 influenza virus vaccine, split virus (incl. purified surface antigen) Destinee Rich Other [facility] [employer] Other 01-06-2021 influenza virus vaccine, unspecified formulation [facility] 04-09-2017 influenza virus vaccine, split virus (incl. purified surface antigen) Destinee Rich Other [facility] [employer] Other 04-09-2017 influenza virus vaccine, unspecified formulation [facility] 01-29-2016 tetanus and diphtheria toxoids, adsorbed, preservative free, for adult use (5 Lf of tetanus toxoid and 2 Lf of diphtheria toxoid) Destinee Rich Other [facility] NEGATED: Highlighted row has not occurred!12-06-2019 influenza virus vaccine, split virus (incl. purified surface antigen) Destinee Rich Other [facility] [employer] Other Payers Date Payer Category Payer Unknown [employer] [id number] 2022-Present [address] [place] [address] [id number] 1960 Unknown [id number] 1960 Unknown [id number] 1959 Unknown [id number] Social History Date Type Detail Facility Sex Assigned At [facility] Other Start: 05-18-2023 Tobacco smoking status GAIS Never smoked tobacco (finding) [facility] Start: 1960 Sex Assigned At Male F [facility] Tobacco smoking status [facility] Tobacco smoking consumption unknown [facility] Start: 1960 Sex assigned at Not [...] climbs everyday for work He work on [employer] on [address]. No past medical history on file. No [...] was counseled on the risks of stroke, DE, and sudden with VIJAY, along with the [...] clinic: 1 year documented in this encounter [facility] Evaluation note 11-30-2022 Note Date & Type Note Facility 11-30-2022 Evaluation note Encounter Date Diagnosis Assessment Notes Nov, Acute bronchitis due to other specified organisms (ICD-10 - J20.8) [facility] Other Evaluation note 11-24-2022 Note Date & [...] up with if no improvement of symptoms [facility] Other Evaluation note 05-08-2022 Note Date & [...] (ICD-10 - Z12.5) Yearly PSA and [facility] Other Evaluation note Note Date & Type Note Facility Evaluation note No Information [employer] Other Evaluation note Note Date & Type Note Facility Evaluation note Diagnosis Onset Date Essential hypertension acute Suspected sleep apnea noneac tive [facility] Work Phone: Evaluation note Note Date & Type Note Facility Evaluation note Diagnosis Onset Date Essential hypertension acute Gastroesophageal reflux dise ase with esophagitis without hemorrhage acute VIJAY (obstructive sleep apnea) acute [facility] Work Phone: Evaluation note Note Date [...] History tonsillectomy Hospitalization History see surgical hx [facility] Other Summary Purpose Family History Relationship Condition Age at Onset Recorded Date/T josefina Not Specified Hypertension Unknown Relationship Condition Age [...] section and content) DATE CREATED AUTHOR 08/12/2018 [facility] DATE CREATED AUTHOR AUTHOR'S ORGANIZ ATION 05/19/2022 [facility] [place] [facility] DATE CREATED AUTHOR AUTHOR'S ORGANIZ ATION 12/25/2023 [facility] REASON FOR VISIT (unrecogniz ed section and content) Reason Comments Sleep Apnea Specialty Diagnoses / Procedures Referred By Eve elizondo Referred To Contact Neurology Diagnoses Obstructive sleep apnea (adult) (pediatric) Procedures [facility] OFFICE/OUTPATIENT [facility] 30 MINUTES Kavon Mcghee DO [address] [place] [address] Referral ID Status Reason Start Date Expiration Date V isits Requested Visits Authorized [id number] Closed Consult and Treat 12/21/2023 06/18/2024 1 [...] December 22, 2023 End: December 22, 2023 Athletic Coordinator Relationship Specialty Start Date End Date Kenton Monteiro MD [address] [place] [id number] PCP - General Internal Medicine 11/04/23 Athletic Coordinator Relationship Specialty Start Date End Date Kenton Monteiro MD [address] [place] [id number] PCP - General Internal Medicine 11/04/23 Goals [...] BE BASED ON THE PRIMARY CLINICAL RECORDS. [employer] provides no warranty or guarantee of the accuracy or completeness of information in this document.
[2024-05-20 06:49] LABS: Basophils Absolute Auto 0.1 10^3/uL (0.0-0.1); Basophils Percent Auto 1.6 % (0.2-2.0); Eosinophils Absolute Auto 0.3 10^3/uL (0.0-0.7); Eosinophils Percent Auto 4.4 % (0.9-7.0); Hematocrit 45.1 % (42.0-54.0); Hemoglobin 15.4 g/dL (14.0-18.0); Immature Granulocytes Abs Auto 0.02 10^3/uL (0.00-0.03); Immature Granulocytes Pct Auto 0.3 % (0.0-0.5); Lymphocytes Absolute Auto 1.8 10^3/uL (1.2-3.8); Lymphocytes Percent Auto 26.4 % (20.5-60.0); Mean Corpuscular HGB Conc 34.1 g/dL (29.9-35.2); Mean Corpuscular Hemoglobin 30.7 pg (25.9-34.0); Mean Platelet Volume 11.3 fL (9.5-13.5); Monocytes Percent Auto 15.3 % (1.7-12.0); Neutrophils Absolute Auto 3.5 10^3/uL (1.4-6.5); Platelet Count 313 10^3/uL (150-450); Red Blood Count 5.01 10^6/uL (4.70-6.10); Red Cell Distribution Width 12.4 % (11.0-15.0); White Blood Count 6.8 10^3/uL (4.0-11.0)
[2024-05-20 07:19] LABS: Alanine Aminotransferase 32 U/L (16-63); Albumin Globulin Ratio 1.2; Albumin Level 3.6 g/dL (3.4-5.0); Alkaline Phosphatase 37 U/L (46-116); Anion Gap 8.7; Aspartate Amino Transferase 19 U/L (15-37); Bilirubin Total 0.6 mg/dL (0.2-1.0); Calcium 8.9 mg/dL (8.5-10.1); Carbon Dioxide 30.5 mmol/L (21.0-32.0); Chloride 108 mmol/L (98-107); Chol HDL Ratio 4.9; Cholesterol 165 mg/dL (<=200); Estimated GFR (African America >60 (>=60 mL/min/1.73m^2); Estimated GFR (Non-African Ame >60 (>=60 mL/min/1.73m^2); Globulin 3.1 g/dL; Glucose 100 mg/dL (74-106); HDL Cholesterol 34 mg/dL (40-60); Potassium 4.2 mmol/L (3.5-5.1); Sodium 143 mmol/L (136-145); Total Protein 6.7 g/dL (6.4-8.2); Triglycerides 112 mg/dL (<=150); VLDL CHOLESTEROL 22.4 mg/dL
[2024-05-20 08:42] LABS: Prostate Specific Antigen Scrn 2.73 ng/mL (<=4.00)
== END 2024-05-20 06:22 | disposition home or self-care (01) ==
LOC: LAB 06:21
PROVIDERS: PCP Internal Medicine; Visit Provider Internal Medicine
DX: Z00.00 Encounter for general adult medical examination without abnormal findings (principal)
CPT/HCPCS: 36415; 80053; 80061; 85025; G0103